=== PATIENT | female | born 1945 | race Caucasian/White ===

== ENCOUNTER → 2018-07-22 13:32 | Outpatient (CLI) | payer MEDICARE, OTHER, SELFPAY | PROVIDERS: Visit Provider Internal Medicine | DX: M85.88 Other specified disorders of bone density and structure, other site (principal); Z78.0 Asymptomatic menopausal state; E11.9 Type 2 diabetes mellitus without complications | CPT/HCPCS: 77080; 77081 ==

== ENCOUNTER 2018-09-28 19:08 | Emergency (ER) | payer MEDICARE, OTHER, SELFPAY ==
[2018-09-28 19:21] VITALS: BP 172/83; PULSE 94; RESP 15; TEMP 37; O2SAT 99; BMI 34.0
--- NOTE | 2018-09-28 19:35 | DI.RAD.S_ITS ---
PROCEDURE: XR HIP W PEL IF DONE LT 2V INDICATIONS: Left hip pain, unable to bear wt. TECHNIQUE: AP pelvis with lateral view(s) of the left hip(s). COMPARISON: None. FINDINGS: Bones: No fractures or dislocations. Pelvic ring appears intact. No suspicious bony lesions. Soft tissues: The visualized bowel gas pattern is normal. Calcification noted adjacent to the lateral margin of the left femur greater trochanter concerning for calcific tendinitis. IMPRESSION: 1. No fracture. No acute osseous lesion. If symptoms and/or clinical suspicion for pathology persists, further assessment with repeat radiographs (7-10 days) or advanced imaging (e.g. CT, MRI or bone scan) may be helpful. 2. Left gluteal calcific tendinitis. Dictated by: Melba Martin MD, PhD on 09/28/2018 at 20:05 Approved by: Melba Martin MD, PhD on 09/28/2018 at 20:07
--- NOTE | 2018-09-28 19:41 | ED.LOWEXIN ---
HPI - Extremity Injury (Lower) <HECTOR Benedict - Last Filed: 09/28/18 21:53> General Chief Complaint: Extremity Injury, Lower Stated Complaint: unable to bear wt Time Seen by Provider: 09/28/18 19:24 Source: patient and family Mode of arrival: wheelchair Limitations: no limitations History of Present Illness HPI Narrative: 73-year-old female with a history of herniated disc and low back pain, as well as hypertension, presents emergency department complaining of left hip pain that started while she was getting out of the shower. She states it started suddenly and was a sharp 9/10 pain that was worse with standing and better with rest. She denies any trauma during this time. During the interview she also reported a twinge of substernal chest pain that comes 2 to 3 times a day and lasts for 1-3 seconds for the past 3 days however, this pain has not occurred today. Patient states this chest pain usually occurs when she is at rest. She also complains of neck pain stating that her neck is ?sore?. Patient states she has been using a new orthopedic bed that she is able to raise the head of, she wonders is this is contributing to her neck pain. She denies any fevers, chills, shortness of breath, nausea, vomiting, abdominal pain, orthopnea, syncope, or confusion. Related Data Previous Rx's Medication Instructions Recorded hydrocodone-acetaminophen [[place]] 1 tab PO BEDTIME PRN #5 tab 09/28/18 Allergies Allergy/AdvReac Type Severity Reaction Status Date / Time lisinopril Allergy Verified 09/28/18 19:21 Penicillins Allergy Verified 09/28/18 19:21 Review of Systems <HECTOR Benedict - Last Filed: 09/28/18 21:53> Review of Systems REVIEW OF SYSTEMS: GENERAL: Denies fever or chills. HENT: No head trauma. EYES: No double vision or vision loss. CARDIOVASCULAR: No chest pain or syncope. RESPIRATORY: No shortness of breath or cough. GASTROINTESTINAL: No nausea, vomiting, diarrhea, or constipation. GENITOURINARY: No flank pain or dysuria. MUSCULOSKELETAL: Complains of left hip pain, see HPI. INTEGUMENTARY: No rash, lesions, or pruritus. NEURO: No numbness, tingling. PSYCH: No behavior or mood changes. PFSH <HECTOR Benedict - Last Filed: 09/28/18 21:53> Medical History Herniated disc (Acute) Social History Smoking Status: Unknown if ever smoked Social History Smoking Status: Unknown if ever smoked Exam <HECTOR Benedict - Last Filed: 09/28/18 21:53> Initial Vital Signs Initial Vital Signs: Vital Signs Temperature 98.6 F 09/28/18 19:21 Pulse Rate 94 H 09/28/18 19:21 Respiratory Rate 15 09/28/18 19:21 Blood Pressure 172/83 H 09/28/18 19:21 Pulse Oximetry 99 09/28/18 19:21 PHYSICAL EXAMINATION: GENERAL: Well groomed, alert, and cooperative. Answers questions promptly and appropriately. Vital signs noted. HENT: Normocephalic, atraumatic. Oropharynx without erythema. EYES: PERRLA. symmetrical, sclera white, no periorbital swelling. CARDIOVASCULAR: S1 and S2 sounds normal. Regular rate and rhythm, no murmurs, clicks, or bruits. 2+ pedal edema noted, patient states this is normal for her. RESPIRATORY: Normal respiratory rate, trachea midline, airway patent. No stridor, nasal flaring or accessory muscle use. Lungs are clear in all pinon. MUSCULOSKELETAL: Significant tenderness to palpation of left hip joint, and sciatica region. No rash, swelling, or erythema in the area, no ecchymosis in the area. Straight leg test produced pain in her back. After administration of Toradol patient was able to ambulate to the bathroom without significant pain, she did states she had some ongoing pain cell.. Patient walks with a limp is due to left hip pain.. Equal tone and mass bilaterally. No spinal tenderness or deformities. EXTREMITIES: CMS intact. No pedal edema. SKIN: Warm, dry, soft, appropriate color for ethnicity. No lesions, rashes, or wounds. NEURO: Alert and Oriented X 3. No sensory deficits. PSYCH: Appropriate affect and mood. <Pramod López MD - Last Filed: 09/29/18 00:48> Initial Vital Signs Initial Vital Signs: Vital Signs Temperature 98.6 F 09/28/18 19:21 Pulse Rate 94 H 09/28/18 19:21 Respiratory Rate 15 09/28/18 19:21 Blood Pressure 172/83 H 09/28/18 19:21 Pulse Oximetry 99 09/28/18 19:21 Scores <HECTOR Benedict - Last Filed: 09/28/18 21:53> HEART Score Heart Score history: Slightly Suspicious Heart Score EKG: Normal Heart Score Age: > or = 65 years old Heart Score risk factors: No known risk factors Heart Score troponin: < or = to normal limit Heart Score Total: 2 Course <HECTOR Benedict - Last Filed: 09/28/18 21:53> Course Narrative: Extensive discussion was had with patient about the importance of follow-up for this condition. Pain medications were given to help her rest, we spoke about the fact that injections of prednisone were most helpful and or prednisone would not be beneficial and it will increase her blood sugars. Patient verbalized understanding. Extensive education was given about narcotic and the risk for addiction and drowsiness. Patient was instructed not to drive with narcotics. Orders Ordered: ED Orders 09/28/18 19:35 XR hip w pel if done LT 2V Stat EKG-12 Lead Stat 09/28/18 19:50 Complete Blood Count AUTO DIFF Stat Comprehensive Metabolic Panel Stat Erythrocyte Sedimentation Rate Stat Troponin & CK Cardiac Panel Stat Discontinued Medications Hydrocodone Bitart/Acetaminophen (Vicodin Prepack) 1 bottle MISC SEEINSTR ONE Stop: 09/28/18 21:30 Hydrocodone Bitart/Acetaminophen ([place] 5/325) 1 tab PO NOW ONE Stop: 09/28/18 21:35 Last Admin: 09/28/18 21:38 Dose: 1 tab Ketorolac Tromethamine (Toradol) 15 mg IV NOW ONE Stop: 09/28/18 19:41 Last Admin: 09/28/18 20:11 Dose: 15 mg Consultations Consultation #1: Patient staffed with Dr. López. Vital Signs - 8 hr 09/28/18 19:21 09/28/18 20:00 09/28/18 21:00 Temperature 98.6 F Pulse Rate 94 H 72 81 Respiratory Rate 15 17 17 Blood Pressure 172/83 H Blood Pressure [Right Arm] 145/82 H 141/79 H Pulse Oximetry 99 98 99 <Pramod López MD - Last Filed: 09/29/18 00:48> Orders Ordered: ED Orders 09/28/18 19:35 XR hip w pel if done LT 2V Stat EKG-12 Lead Stat 09/28/18 19:50 Complete Blood Count AUTO DIFF Stat Comprehensive Metabolic Panel Stat Erythrocyte Sedimentation Rate Stat Troponin & CK Cardiac Panel Stat Discontinued Medications Hydrocodone Bitart/Acetaminophen (Vicodin Prepack) 1 bottle MISC SEEINSTR ONE Stop: 09/28/18 21:30 Hydrocodone Bitart/Acetaminophen ([place] 5/325) 1 tab PO NOW ONE Stop: 09/28/18 21:35 Last Admin: 09/28/18 21:38 Dose: 1 tab Ketorolac Tromethamine (Toradol) 15 mg IV NOW ONE Stop: 09/28/18 19:41 Last Admin: 09/28/18 20:11 Dose: 15 mg Vital Signs - 8 hr 09/28/18 19:21 09/28/18 20:00 09/28/18 21:00 Temperature 98.6 F Pulse Rate 94 H 72 81 Respiratory Rate 15 17 17 Blood Pressure 172/83 H Blood Pressure [Right Arm] 145/82 H 141/79 H Pulse Oximetry 99 98 99 MDM - Extremity Injury (Lower) <HECTOR Benedict - Last Filed: 09/28/18 21:53> Medical Records Attestation: I reviewed the patient's medical records. Lab Data Attestation: I reviewed the patient's lab results. Result diagrams: 09/28/18 19:50 09/28/18 19:50 Lab Results 09/28/18 09/28/18 Range/Units 19:50 19:50 WBC 8.4 (4.5-11.0) X10^3/uL RBC 4.55 (4.0-5.2) X10^6/uL Hgb 13.2 (12.0-16.0) g/dL Hct 39.3 (36-46) % MCV 86.3 (80-100) fL MCH 29.1 (26-34) PG MCHC 33.7 (30-36) % RDW 13.6 (11.6-14.8) % Plt Count 294 (150-400) X10^3/uL Neut % (Auto) 65.3 (50-75) % Lymph % (Auto) 26.2 (25-40) % [place] % (Auto) 6.5 (3-14) % Eos % (Auto) 1.2 L (2-4) % Baso % (Auto) 0.8 (0-2) % Neut # (Auto) 5500 (0606-2850) /uL Lymph # (Auto) 2200 (0589-5815) /uL [place] # (Auto) 500 (0-900) /uL Eos # (Auto) 100 (0-450) /uL Baso # (Auto) 100 (0-100) /uL ESR 31 H (0-20) MM/HR Sodium 132 L (137-145) mmol/L Potassium 3.7 (3.4-5.1) mmol/L Chloride 96 L (98-107) mmol/L Carbon Dioxide 24 (22-32) mmol/L BUN 17 (7-17) mg/dL Creatinine 0.60 (0.52-1.04) mg/dL Estimated GFR > 60.0 (>60) mL/min BUN/Creatinine Ratio 28.3 H (6-22) Glucose 126 H (80-110) mg/dL Calcium 9.8 (8.4-10.2) mg/dL Total Bilirubin 0.6 (0.2-1.3) mg/dL AST 20 (14-36) IU/L ALT 12 (9-52) IU/L Alkaline Phosphatase 81 (38-126) U/L Total Creatine Kinase 51 (30-135) U/L CK-MB (CK-2) TNP CK-MB (CK-2) Rel Index TNP Troponin I < 0.012 (0.01-0.034) ng/mL Total Protein 8.1 (6.3-8.2) g/dL Albumin 4.5 (3.5-5.0) g/dL Globulin 3.6 (1.7-4.1) g/dL Albumin/Globulin Ratio 1.3 (1.0-2.8) ECG Data Interpretation: Normal sinus rhythm, rate 73, QTC 409, OK interval to 0 8, no ectopy, no ST elevation or ST depression, no abnormal T-wave inversion. EKG was also viewed by Dr. López. MDM Narrative Medical decision making narrative: Differential includes calcified gluteal tendinitis (as seen on x-ray, exam consistent with this, lack of other systemic symptoms), herniated disc contributing to sciatica pain (positive straight leg test, history of herniated disc, pain that radiates down her leg), and bursitis (less likely due to lack of redness or inflammation of the area), less likely shingles due to lack of rash or burning pain. I have very little concern for acute coronary syndrome due to normal EKG, negative cardiac enzymes, patient presents with no pain at this time, pain is not clearly cardiac in nature, and no other symptoms are noted such as shortness of breath. Strict return precautions given and follow-up instructions for the orthopedic in for further testing such as a stress test were given to patient. Patient verbalized understanding. <Pramod López MD - Last Filed: 09/29/18 00:48> Lab Data Lab Results 09/28/18 09/28/18 Range/Units 19:50 19:50 WBC 8.4 (4.5-11.0) X10^3/uL RBC 4.55 (4.0-5.2) X10^6/uL Hgb 13.2 (12.0-16.0) g/dL Hct 39.3 (36-46) % MCV 86.3 (80-100) fL MCH 29.1 (26-34) PG MCHC 33.7 (30-36) % RDW 13.6 (11.6-14.8) % Plt Count 294 (150-400) X10^3/uL Neut % (Auto) 65.3 (50-75) % Lymph % (Auto) 26.2 (25-40) % [place] % (Auto) 6.5 (3-14) % Eos % (Auto) 1.2 L (2-4) % Baso % (Auto) 0.8 (0-2) % Neut # (Auto) 5500 (5272-8558) /uL Lymph # (Auto) 2200 (4979-0895) /uL [place] # (Auto) 500 (0-900) /uL Eos # (Auto) 100 (0-450) /uL Baso # (Auto) 100 (0-100) /uL ESR 31 H (0-20) MM/HR Sodium 132 L (137-145) mmol/L Potassium 3.7 (3.4-5.1) mmol/L Chloride 96 L (98-107) mmol/L Carbon Dioxide 24 (22-32) mmol/L BUN 17 (7-17) mg/dL Creatinine 0.60 (0.52-1.04) mg/dL Estimated GFR > 60.0 (>60) mL/min BUN/Creatinine Ratio 28.3 H (6-22) Glucose 126 H (80-110) mg/dL Calcium 9.8 (8.4-10.2) mg/dL Total Bilirubin 0.6 (0.2-1.3) mg/dL AST 20 (14-36) IU/L ALT 12 (9-52) IU/L Alkaline Phosphatase 81 (38-126) U/L Total Creatine Kinase 51 (30-135) U/L CK-MB (CK-2) TNP CK-MB (CK-2) Rel Index TNP Troponin I < 0.012 (0.01-0.034) ng/mL Total Protein 8.1 (6.3-8.2) g/dL Albumin 4.5 (3.5-5.0) g/dL Globulin 3.6 (1.7-4.1) g/dL Albumin/Globulin Ratio 1.3 (1.0-2.8) Discharge Plan Departure Patient Disposition: Home Clinical Impression: Calcifying tendinitis Chest pain Qualifiers: Chest pain type: other chest pain Qualified Code(s): R07.89 - Other chest pain Discharge Date/Time: 09/28/18 21:56 Interventions: ED Discharge Assessment Last Done: 09/28/18 21:52 Instructions: DI for Tendinitis, DI for Chest Pain Activity Restrictions/Additional Instructions: Thank you for entrusting me with your care today. As discussed, your x-ray did not show any fractures however it did show gluteal calcified tendinitis. I prescribed you pain medications and given you a referral to an orthopedic. Do not take Tylenol with this pain medication, you may take Aleve with his pain medication. This pain medication may make you constipated and drowsy, do not drive while you are taking this. Please follow-up as soon as possible to schedule an appointment for treatment and further testing if needed. Additionally, follow up with your primary care provider for further testing such as a stress test if you continue to have this pain in her chest. Return to the emergency department if you develop fevers, a change in chest pain, shortness of breath, syncope, or confusion. Prescriptions: New hydrocodone-acetaminophen [[place]] 5-325 mg tablet 1 tab PO BEDTIME PRN (Reason: pain) Qty: 5 RF: 0 Referrals: Chriss Dunlap MD [Physician] - (Calcified gluteal tendonitis) <Pramod López MD - Last Filed: 09/29/18 00:48> [facility] I was present in the ER at the time this patient's care. I discussed the patient's evaluation, management and disposition with HECTOR Drummond during the patient's care here in the ER. I agree with the assessment and treatment plan.
--- NOTE | 2018-09-28 19:44 | ED_ITS ---
HPI - Extremity Injury (Lower) <HECTOR Benedict - Last Filed: 09/28/18 21:53> General Chief Complaint: Extremity Injury, Lower Stated Complaint: unable to bear wt Time Seen by Provider: 09/28/18 19:24 Source: patient and family Mode of arrival: wheelchair Limitations: no limitations History of Present Illness HPI Narrative: 73-year-old female with a history of herniated disc and low back pain, as well as hypertension, presents emergency department complaining of left hip pain that started while she was getting out of the shower. She states it started suddenly and was a sharp 9/10 pain that was worse with standing and better with rest. She denies any trauma during this time. During the interview she also reported a twinge of substernal chest pain that comes 2 to 3 times a da y and lasts for 1-3 seconds for the past 3 days however, this pain has not occurred today. Patient states this chest pain usually occurs when she is at rest. She also complains of neck pain stating that her neck is ?sore?. Patient states she has been using a new orthopedic bed that she is able to raise the head of, she wonders is this is contributing to her neck pain. She denies any fevers, chills, shortness of breath, nausea, vomiting, abdominal pain, orthopnea, syncope, or confusion. Related Data Previous Rx's Medication Instructions Recorded hydrocodone-acetaminophen [Franklin] 1 tab PO BEDTIME PRN #5 tab 09/28/18 Allergies Allergy/AdvReac Type Severity Reaction Status Date / Time lisinopril Allergy Verified 09/28/18 19:21 Penicillins Allergy Verified 09/28/18 19:21 Review of Systems <HECTOR Benedict - Last Filed: 09/28/18 21:53> Review of Systems REVIEW OF SYSTEMS: GENERAL: Denies fever or chills. HENT: No head trauma. EYES: No double vision or vision loss. CARDIOVASCULAR: No chest pain or syncope. RESPIRATORY: No shortness of breath or cough. GASTROINTESTINAL: No nausea, vomiting, diarrhea, or constipation. GENITOURINARY: No flank pain or dysuria. MUSCULOSKELETAL: Complains of left hip pain, see HPI. INTEGUMENTARY: No rash, lesions, or pruritus. NEURO: No numbness, tingling. PSYCH: No behavior or mood changes. PFSH <HECTOR Benedict - Last Filed: 09/28/18 21:53> Medical History Herniated disc (Acute) Social History Smoking Status: Unknown if ever smoked Social History Smoking Status: Unknown if ever smoked Exam <HECTOR Benedict - Last Filed: 09/28/18 21:53> Initial Vital Signs Initial Vital Signs: Vital Signs Temperature 98.6 F 09/28/18 19:21 Pulse Rate 94 H 09/28/18 19:21 Respiratory Rate 15 09/28/18 19:21 Blood Pressure 172/83 H 09/28/18 19:21 Pulse Oximetry 99 09/28/18 19:21 PHYSICAL EXAMINATION: GENERAL: Well groomed, alert, and cooperative. Answers questions promptly and appropriately. Vital signs noted. HENT: Normocephalic, atraumatic. Oropharynx without erythema. EYES: PERRLA. symmetrical, sclera white, no periorbital swelling. CARDIOVASCULAR: S1 and S2 sounds normal. Regular rate and rhythm, no murmurs, clicks, or bruits. 2+ pedal edema noted, patient states this is normal for her. RESPIRATORY: Normal respiratory rate, trachea midline, airway patent. No stridor, nasal flaring or accessory muscle use. Lungs are clear in all pinon. MUSCULOSKELETAL: Significant tenderness to palpation of left hip joint, and sciatica region. No rash, swelling, or erythema in the area, no ecchymosis in the area. Straight leg test produced pain in her back. After administration of Toradol patient was able to ambulate to the bathroom without significant pain, she did states she had some ongoing pain cell.. Patient walks with a limp is due to left hip pain.. Equal tone and mass bilaterally. No spinal tenderness or deformities. EXTREMITIES: CMS intact. No pedal edema. SKIN: Warm, dry, soft, appropriate color for ethnicity. No lesions, rashes, or wounds. NEURO: Alert and Oriented X 3. No sensory deficits. PSYCH: Appropriate affect and mood. <Pramod López MD - Last Filed: 09/29/18 00:48> Initial Vital Signs Initial Vital Signs: Vital Signs Temperature 98.6 F 09/28/18 19:21 Pulse Rate 94 H 09/28/18 19:21 Respiratory Rate 15 09/28/18 19:21 Blood Pressure 172/83 H 09/28/18 19:21 Pulse Oximetry 99 09/28/18 19:21 Scores <HECTOR Benedict - Last Filed: 09/28/18 21:53> HEART Score Heart Score history: Slightly Suspicious Heart Score EKG: Normal Heart Score Age: > or = 65 years old Heart Score risk factors: No known risk factors Heart Score troponin: < or = to normal limit Heart Score Total: 2 Course <HECTOR Benedict - Last Filed: 09/28/18 21:53> Course Narrative: Extensive discussion was had with patient about the importance of follow-up for this condition. Pain medications were given to help her rest, we spoke about the fact that injections of prednisone were most helpful and or prednisone would not be beneficial and it will increase her blood sugars. Patient verbalized understanding. Extensive education was given about narcotic and the risk for addiction and drowsiness. Patient was instructed not to drive with narcotics. Orders Ordered: ED Orders 09/28/18 19:35 XR hip w pel if done LT 2V Stat EKG-12 Lead Stat 09/28/18 19:50 Complete Blood Count AUTO DIFF Stat Comprehensive Metabolic Panel Stat Erythrocyte Sedimentation Rate Stat Troponin & CK Cardiac Panel Stat Discontinued Medications Hydrocodone Bitart/Acetaminophen (Vicodin Prepack) 1 bottle MISC SEEINSTR ONE Stop: 09/28/18 21:30 Hydrocodone Bitart/Acetaminophen (Franklin 5/325) 1 tab PO NOW ONE Stop: 09/28/18 21:35 Last Admin: 09/28/18 21:38 Dose: 1 tab Ketorolac Tromethamine (Toradol) 15 mg IV NOW ONE Stop: 09/28/18 19:41 Last Admin: 09/28/18 20:11 Dose: 15 mg Consultations Consultation #1: Patient staffed with Dr. López. Vital Signs - 8 hr 09/28/18 19:21 09/28/18 20:00 09/28/18 21:00 Temperature 98.6 F Pulse Rate 94 H 72 81 Respiratory Rate 15 17 17 Blood Pressure 172/83 H Blood Pressure [Right Arm] 145/82 H 141/79 H Pulse Oximetry 99 98 99 <Pramod López MD - Last Filed: 09/29/18 00:48> Orders Ordered: ED Orders 09/28/18 19:35 XR hip w pel if done LT 2V Stat EKG-12 Lead Stat 09/28/18 19:50 Complete Blood Count AUTO DIFF Stat Comprehensive Metabolic Panel Stat Erythrocyte Sedimentation Rate Stat Troponin & CK Cardiac Panel Stat Discontinued Medications Hydrocodone Bitart/Acetaminophen (Vicodin Prepack) 1 bottle MISC SEEINSTR ONE Stop: 09/28/18 21:30 Hydrocodone Bitart/Acetaminophen (Franklin 5/325) 1 tab PO NOW ONE Stop: 09/28/18 21:35 Last Admin: 09/28/18 21:38 Dose: 1 tab Ketorolac Tromethamine (Toradol) 15 mg IV NOW ONE Stop: 09/28/18 19:41 Last Admin: 09/28/18 20:11 Dose: 15 mg Vital Signs - 8 hr 09/28/18 19:21 09/28/18 20:00 09/28/18 21:00 Temperature 98.6 F Pulse Rate 94 H 72 81 Respiratory Rate 15 17 17 Blood Pressure 172/83 H Blood Pressure [Right Arm] 145/82 H 141/79 H Pulse Oximetry 99 98 99 MDM - Extremity Injury (Lower) <HECTOR Benedict - Last Filed: 09/28/18 21:53> Medical Records Attestation: I reviewed the patient's medical records. Lab Data Attestation: I reviewed the patient's lab results. Result diagrams: 09/28/18 19:50 09/28/18 19:50 Lab Results 09/28/18 09/28/18 Range/Units 19:50 19:50 WBC 8.4 (4.5-11.0) X10^3/uL RBC 4.55 (4.0-5.2) X10^6/uL Hgb 13.2 (12.0-16.0) g/dL Hct 39.3 (36-46) % MCV 86.3 (80-100) fL MCH 29.1 (26-34) PG MCHC 33.7 (30-36) % RDW 13.6 (11.6-14.8) % Plt Count 294 (150-400) X10^3/uL Neut % (Auto) 65.3 (50-75) % Lymph % (Auto) 26.2 (25-40) % [place] % (Auto) 6.5 (3-14) % Eos % (Auto) 1.2 L (2-4) % Baso % (Auto) 0.8 (0-2) % Neut # (Auto) 5500 (8880-1488) /uL Lymph # (Auto) 2200 (1526-4557) /uL [place] # (Auto) 500 (0-900) /uL Eos # (Auto) 100 (0-450) /uL Baso # (Auto) 100 (0-100) /uL ESR 31 H (0-20) MM/HR Sodium 132 L (137-145) mmol/L Potassium 3.7 (3.4-5.1) mmol/L Chloride 96 L (98-107) mmol/L Carbon Dioxide 24 (22-32) mmol/L BUN 17 (7-17) mg/dL Creatinine 0.60 (0.52-1.04) mg/dL Estimated GFR > 60.0 (>60) mL/min BUN/Creatinine Ratio 28.3 H (6-22) Glucose 126 H (80-110) mg/dL Calcium 9.8 (8.4-10.2) mg/dL Total Bilirubin 0.6 (0.2-1.3) mg/dL AST 20 (14-36) IU/L ALT 12 (9-52) IU/L Alkaline Phosphatase 81 (38-126) U/L Total Creatine Kinase 51 (30-135) U/L CK-MB (CK-2) TNP CK-MB (CK-2) Rel Index TNP Troponin I < 0.012 (0.01-0.034) ng/mL Total Protein 8.1 (6.3-8.2) g/dL Albumin 4.5 (3.5-5.0) g/dL Globulin 3.6 (1.7-4.1) g/dL Albumin/Globulin Ratio 1.3 (1.0-2.8) ECG Data Interpretation: Normal sinus rhythm, rate 73, QTC 409, IL interval to 0 8, no ectopy, no ST elevation or ST depression, no abnormal T-wave inversion. EKG was also viewed by Dr. López. MDM Narrative Medical decision making narrative: Differential includes calcified gluteal tendinitis (as seen on x-ray, exam consistent with this, lack of other systemic symptoms), herniated disc contributing to sciatica pain (positive straight leg test, history of herniated disc, pain that radiates down her leg), and bursitis (less likely due to lack of redness or inflammation of the area), less likely shingles due to lack of rash or burning pain. I have very little concern for acute coronary syndrome due to normal EKG, negative cardiac enzymes, patient presents with no pain at this time, pain is not clearly cardiac in nature, and no other symptoms are noted such as shortness of breath. Strict return precautions given and follow-up instructions for the orthopedic in for further testing such as a stress test were given to patient. Patient verbalized understanding. <Pramod López MD - Last Filed: 09/29/18 00:48> Lab Data Lab Results 09/28/18 09/28/18 Range/Units 19:50 19:50 WBC 8.4 (4.5-11.0) X10^3/uL RBC 4.55 (4.0-5.2) X10^6/uL Hgb 13.2 (12.0-16.0) g/dL Hct 39.3 (36-46) % MCV 86.3 (80-100) fL MCH 29.1 (26-34) PG MCHC 33.7 (30-36) % RDW 13.6 (11.6-14.8) % Plt Count 294 (150-400) X10^3/uL Neut % (Auto) 65.3 (50-75) % Lymph % (Auto) 26.2 (25-40) % [place] % (Auto) 6.5 (3-14) % Eos % (Auto) 1.2 L (2-4) % Baso % (Auto) 0.8 (0-2) % Neut # (Auto) 5500 (5517-9525) /uL Lymph # (Auto) 2200 (7586-3775) /uL [place] # (Auto) 500 (0-900) /uL Eos # (Auto) 100 (0-450) /uL Baso # (Auto) 100 (0-100) /uL ESR 31 H (0-20) MM/HR Sodium 132 L (137-145) mmol/L Potassium 3.7 (3.4-5.1) mmol/L Chloride 96 L (98-107) mmol/L Carbon Dioxide 24 (22-32) mmol/L BUN 17 (7-17) mg/dL Creatinine 0.60 (0.52-1.04) mg/dL Estimated GFR > 60.0 (>60) mL/min BUN/Creatinine Ratio 28.3 H (6-22) Glucose 126 H (80-110) mg/dL Calcium 9.8 (8.4-10.2) mg/dL Total Bilirubin 0.6 (0.2-1.3) mg/dL AST 20 (14-36) IU/L ALT 12 (9-52) IU/L Alkaline Phosphatase 81 (38-126) U/L Total Creatine Kinase 51 (30-135) U/L CK-MB (CK-2) TNP CK-MB (CK-2) Rel Index TNP Troponin I < 0.012 (0.01-0.034) ng/mL Total Protein 8.1 (6.3-8.2) g/dL Albumin 4.5 (3.5-5.0) g/dL Globulin 3.6 (1.7-4.1) g/dL Albumin/Globulin Ratio 1.3 (1.0-2.8) Discharge Plan Departure Patient Disposition: Home Clinical Impression: Calcifying tendinitis Chest pain Qualifiers: Chest pain type: other chest pain Qualified Code(s): R07.89 - Other chest pain Discharge Date/Time: 09/28/18 21:56 Interventions: ED Discharge Assessment Last Done: 09/28/18 21:52 Instructions: DI for Tendinitis, DI for Chest Pain Activity Restrictions/Additional Instructions: Thank you for entrusting me with your care today. As discussed, your x-ray did not show any fractures however it did show gluteal calcified tendinitis. I prescribed you pain medications and given you a referral to an orthopedic. Do not take Tylenol with this pain medication, you may take Aleve with his pain medication. This pain medication may make you constipated and drowsy, do not drive while you are taking this. Please follow-up as soon as possible to schedule an appointment for treatment and further testing if needed. Additionally, follow up with your primary care provider for further testing such as a stress test if you continue to have this pain in her chest. Return to the emergency department if you develop fevers, a change in chest pain, shortness of breath, syncope, or confusion. Prescriptions: New hydrocodone-acetaminophen [Franklin] 5-325 mg tablet 1 tab PO BEDTIME PRN (Reason: pain) Qty: 5 RF: 0 Referrals: Chriss Dunlap MD [Physician] - (Calcified gluteal tendonitis) <Pramod López MD - Last Filed: 09/29/18 00:48> [facility]: I was present in the ER at the time this patient's care. I discussed the patient's evaluation, management and disposition with HECTOR Drummond during the patient's care here in the ER. I agree with the assessment and treatment plan.
[2018-09-28 20:00] VITALS: BP 145/82; PULSE 72; RESP 17; O2SAT 98
[2018-09-28 20:02] LABS: Add Manual Diff / Slide Review NO; Basophils Absolute Auto 100 /uL (0-100); Basophils Percent Auto 0.8 % (0-2); Eosinophils Absolute Auto 100 /uL (0-450); Eosinophils Percent Auto 1.2 % (2-4); Hematocrit 39.3 % (36-46); Hemoglobin 13.2 g/dL (12.0-16.0); Lymphocytes Absolute Auto 2200 /uL (1100-4500); Lymphocytes Percent Auto 26.2 % (25-40); Mean Corpuscular HGB Conc 33.7 % (30-36); Mean Corpuscular Hemoglobin 29.1 PG (26-34); Mean Corpuscular Volume 86.3 fL (80-100); Monocytes Absolute Auto 500 /uL (0-900); Monocytes Percent Auto 6.5 % (3-14); Neutrophils Absolute Auto 5500 /uL (1500-7000); Neutrophils Percent Auto 65.3 % (50-75); Platelet Count 294 X10^3/uL (150-400); Red Blood Cell Count 4.55 X10^6/uL (4.0-5.2); Red Cell Distribution Width 13.6 % (11.6-14.8); White Blood Cell Count 8.4 X10^3/uL (4.5-11.0)
[2018-09-28] MEDS: KETOROLAC 60 MG/2 ML VIAL 15 MG IV (20:11)
[2018-09-28 20:16] LABS: Erythrocyte Sedimentation Rate 31 MM/HR (0-20)
[2018-09-28 20:17] LABS: Alanine Aminotransferase 12 IU/L (9-52); Albumin 4.5 g/dL (3.5-5.0); Albumin Globulin Ratio 1.3 (1.0-2.8); Alkaline Phosphatase 81 U/L (38-126); Aspartate Aminotransferase 20 IU/L (14-36); BUN Creatinine Ratio 28.3 (6-22); Bilirubin Total 0.6 mg/dL (0.2-1.3); Blood Urea Nitrogen 17 mg/dL (7-17); Calcium 9.8 mg/dL (8.4-10.2); Carbon Dioxide 24 mmol/L (22-32); Chloride 96 mmol/L (98-107); Creatine Kinase 51 U/L (30-135); Estimated Glomerular Filt Rate > 60.0 mL/min (>60); Globulin 3.6 g/dL (1.7-4.1); Glucose 126 mg/dL (80-110); HEMOLYSIS 31 (0-50); Potassium 3.7 mmol/L (3.4-5.1); Sodium 132 mmol/L (137-145); Total Protein 8.1 g/dL (6.3-8.2)
[2018-09-28 21:00] VITALS: BP 141/79; PULSE 81; RESP 17; O2SAT 99
[2018-09-28 21:12] LABS: Troponin I < 0.012 ng/mL (0.01-0.034)
[2018-09-28] MEDS: HYDROCODONE/ACET 5/325 TABLET 1 TAB PO (21:38)
== END 2018-09-28 21:56 | disposition home or self-care (01) ==
PROVIDERS: Emergency Provider Nurse Practitioner
DX: M65.20 Calcific tendinitis, unspecified site (principal); R07.89 Other chest pain
CPT/HCPCS: 36591; 73502; 80053; 82550; 84484; 85025; 85651; 93005; 96374; 99283; 99285; J1885

== ENCOUNTER → 2018-10-05 12:20 | Outpatient (CLI) | payer MEDICARE, OTHER, SELFPAY ==
--- NOTE | 2018-10-05 | DI.MRI.S_ITS ---
PROCEDURE: MR LUMBAR SPINE WO CON INDICATIONS: Sudden onset of low back pain and left leg weakness TECHNIQUE: Noncontrast sagittal T1 spin echo and T2 fast echo, sagittal STIR, axial T1 and T2 fast spin echo through the lumbar spine. In cases with scoliosis, additional coronal T2 fast spin echo may be performed. COMPARISON: None. FINDINGS: Image quality: Excellent. Alignment and Curvature: Grade 1 anterolisthesis of L4 on L5. Bone Marrow: No acute fracture. Multilevel degenerative endplate sclerosis and spurring. Diffuse facet arthropathy. Spinal Cord: Conus medullaris terminates at the L2-L3 level. Visualized cord demonstrates normal signal and size. 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 Facet synovial degenerative cyst seen at the level of L4-L5. Paraspinous Soft Tissues: No paravertebral masses. There is nonspecific, dependent posterior subcutaneous soft tissue edema from level of L3-L4 Large, bilateral presumed renal cysts although technically nonspecific Severe T12-L1 disc degeneration with posterior disc bulge. L1-L2: No canal or lateral recess narrowing. No foraminal stenosis L2-L3: Broad-based posterior disc bulge and bilateral facet arthropathy. Mild central canal narrowing. Partial effacement of both lateral recesses with bilaterally symmetric appearance. Moderate bilateral foraminal narrowing. L3-L4: Broad-based posterior disc bulge and bilateral facet arthropathy. Mild canal stenosis. Mild bilateral foraminal narrowing L4-L5: Broad-based posterior disc bulge and bilateral facet arthropathy. Moderate canal stenosis. Partial effacement of both lateral recesses with bilaterally symmetric appearance. Severe left and moderate to severe right foraminal narrowing with nerve root compression L5-S1: The broad-based posterior disc bulge bilateral facet arthropathy. Mild central canal narrowing. Lateral recesses appear grossly patent. Moderate left and severe foraminal narrowing with nerve root compression IMPRESSION: Grade 1 anterolisthesis of L4 and L5. Diffuse lower lumbar spondylosis and facet arthropathy, with moderate L4-L5 canal narrowing. Multilevel bilateral foraminal stenoses as detailed above, most pronounced at L2-L3, L4-L5 and L5-S1. Dictated by: Vincenzo Mejia M.D. on 10/05/2018 at 13:23 Approved by: Vincenzo Mejia M.D. on 10/05/2018 at 14:21
== END ==
PROVIDERS: PCP Internal Medicine; Visit Provider Physician Assistant Surgical
DX: M54.5 Low back pain (principal); M43.16 Spondylolisthesis, lumbar region; M47.816 Spondylosis without myelopathy or radiculopathy, lumbar region; M47.817 Spondylosis without myelopathy or radiculopathy, lumbosacral region; M48.061 Spinal stenosis, lumbar region without neurogenic claudication; M48.07 Spinal stenosis, lumbosacral region
CPT/HCPCS: 72148

== ENCOUNTER → 2018-12-09 11:44 | Outpatient (CLI) | payer MEDICARE, OTHER, SELFPAY ==
--- NOTE | 2018-12-09 | DI.MG.S_ITS ---
BILATERAL DIGITAL SCREENING MAMMOGRAM 3D/2D WITH CAD: 12/09/2018 CLINICAL: Routine screening. Comparison is made to exams dated: 10/14/2017 mammogram, 08/17/2016 mammogram, and 07/16/2015 mammogram - [facility]. There are scattered fibroglandular elements in both breasts. Current study was also evaluated with a Computer Aided Detection (CAD) system. There is an oval low density mass with an obscured margin in the right breast superior lateral quadrant anterior depth. This appears more prominent on R MLO view, but may be stable on R CC view. There are bilateral circular molemarkers. No other significant masses, calcifications, or other findings are seen in either breast. IMPRESSION: INCOMPLETE: NEEDS ADDITIONAL IMAGING EVALUATION The oval low density mass in the right breast is indeterminate. Additional views with possible ultrasound are recommended. This exam was interpreted at Station ID: [id number]. NOTE: For mammograms, a report in lay terms will be sent to the patient. Approximately 15% of breast malignancies will not be visualized mammographically. In the management of a palpable breast mass, a negative mammogram must not discourage biopsy of a clinically suspicious lesion. Electronically Signed By: Carlos Palma M.D. ecl/:12/09/2018 18:37:17 letter sent: Additional Imaging Needed ACR BI-RADS Category 0: Incomplete [id number]
== END ==
PROVIDERS: PCP Internal Medicine; Visit Provider Internal Medicine
DX: Z12.31 Encounter for screening mammogram for malignant neoplasm of breast (principal)
CPT/HCPCS: 77063; 77067

== ENCOUNTER → 2018-12-30 09:44 | Outpatient (CLI) | payer MEDICARE, OTHER, SELFPAY ==
--- NOTE | 2018-12-30 | DI.MG.S_ITS ---
UNILATERAL RIGHT DIGITAL DIAGNOSTIC MAMMOGRAM 3D/2D WITH ADDITIONAL VIEWS: 12/30/2018 CLINICAL: Additional evaluation requested from prior study. Comparison is made to exams dated: 12/09/2018 mammogram - [facility], 10/14/2017 mammogram, and 08/17/2016 mammogram - [facility]. There are scattered fibroglandular elements in right breast. Previously identified oval low density mass with an obscured margin in the right breast superior lateral quadrant anterior depth on comparison screening mammograms of persists with additional views. IMPRESSION: INCOMPLETE: NEEDS ADDITIONAL IMAGING EVALUATION Previously identified oval low density mass with an obscured margin in the right breast superior lateral quadrant anterior depth on comparison screening mammograms of persists with additional views. A targeted ultrasound is recommended for further evaluation, and will be performed immediately following this exam. This exam was interpreted at Station ID: [id number]. NOTE: For mammograms, a report in lay terms will be sent to the patient. Approximately 15% of breast malignancies will not be visualized mammographically. In the management of a palpable breast mass, a negative mammogram must not discourage biopsy of a clinically suspicious lesion. Electronically Signed By: Carlos Palma M.D. ecl/:12/30/2018 10:22:12 ACR BI-RADS Category 0: Incomplete [id number]
--- NOTE | 2018-12-30 | DI.US.S_ITS ---
LIMITED ULTRASOUND OF RIGHT BREAST: 12/30/2018 CLINICAL: Patient returns today to evaluate a mass in the right breast. Comparison is made to exams dated: 12/30/2018 mammogram, 12/09/2018 mammogram - [facility], 10/14/2017 mammogram, 08/17/2016 mammogram, and 07/16/2015 mammogram - [facility]. Color flow and real-time ultrasound of the right breast 10-12 o'clock region were performed. Quinones scale images of the real-time examination were reviewed. There is a 0.9 x 0.8 x 0.5 cm oval circumscribed hypoechoic mass with mild posterior acoustic enhancement, and no vascularity on Doppler ultrasound located in the right breast at 11 o'clock 2 cm from the nipple. This appears to correlate with the finding seen on mammography. IMPRESSION: SUSPICIOUS OF MALIGNANCY 0.9 x 0.8 x 0.5 cm oval circumscribed mass in the right breast at 11 o'clock 2 cm from the nipple is most consistent with a fibroadenoma and is at low suspicion for malignancy, and appears to correlate with the finding seen on mammography. However, given the increased prominence on mammography, an ultrasound guided biopsy is recommended to exclude malignancy. These results and recommendations were discussed with the patient at the time of the exam by the [facility] Radiologist Dr. Vincenzo Mejia in person. This exam was interpreted at Station ID: [id number]. Electronically Signed By: Carlos Palma M.D. ecl/:12/30/2018 11:39:14 letter sent: Biopsy Required Ultrasound BI-RADS: 4a Low suspicion for malignancy
== END ==
PROVIDERS: PCP Internal Medicine; Visit Provider Internal Medicine
DX: R92.8 Other abnormal and inconclusive findings on diagnostic imaging of breast (principal); N63.11 Unspecified lump in the right breast, upper outer quadrant
CPT/HCPCS: 76642; 77065; G0279

== ENCOUNTER → 2019-01-16 10:42 | Outpatient (CLI) | payer MEDICARE, OTHER, SELFPAY ==
[2019-01-16 12:08] LABS: Hemoglobin A1C% w Est Avg Glu 6.4 % (4.0-6.0)
[2019-01-16 13:14] LABS: Alanine Aminotransferase 18 IU/L (<35); Albumin 4.6 g/dL (3.5-5.0); Albumin Globulin Ratio 1.6 (1.0-2.8); Alkaline Phosphatase 82 U/L (38-126); Aspartate Aminotransferase 19 IU/L (14-36); BUN Creatinine Ratio 18.3 (6-22); Bilirubin Total 0.6 mg/dL (0.2-1.3); Blood Urea Nitrogen 11 mg/dL (7-17); Carbon Dioxide 30 mmol/L (22-32); Chloride 96 mmol/L (98-107); Cholesterol 166 mg/dL (140-199); Estimated Glomerular Filt Rate > 60.0 mL/min (>60); Globulin 2.8 g/dL (1.7-4.1); Glucose 131 mg/dL (80-110); HDL Cholesterol 54 mg/dL (40-60); HEMOLYSIS < 15 (0-50); LDL Cholesterol Calculated 83 mg/dL (<100); Potassium 4.4 mmol/L (3.4-5.1); Sodium 137 mmol/L (137-145); Total Protein 7.4 g/dL (6.3-8.2); Triglycerides 145 mg/dL (35-150)
[2019-01-16 17:01] LABS: Creatinine Urine Random 11.6 mg/dL; Microalbumi Creatinin Ratio Ur < 51.7 ug/mg CR (<30); Microalbumin Urine Random < 0.6 mg/dL (0-1.6)
== END ==
PROVIDERS: PCP Internal Medicine; Visit Provider Internal Medicine
DX: E78.5 Hyperlipidemia, unspecified (principal); E11.9 Type 2 diabetes mellitus without complications
CPT/HCPCS: 36415; 80053; 80061; 82043; 82570; 83036

== ENCOUNTER → 2019-01-18 08:59 | Outpatient (CLI) | payer MEDICARE, OTHER, SELFPAY ==
--- NOTE | 2019-01-18 | DI.MG.S_ITS ---
UNILATERAL RIGHT DIGITAL DIAGNOSTIC MAMMOGRAM POST-NEEDLE BIOPSY: 01/18/2019 CLINICAL: Abnormal right Mammogram. Comparison is made to exams dated: 12/30/2018 ultrasound, 12/30/2018 mammogram, 12/09/2018 mammogram, and 01/18/2019 ultrasound biopsy - [facility]. There are scattered fibroglandular elements in right breast. There is a new Vision marker clip in the appropriate position in the superior right breast near 11-12 o'clock position anterior depth. This marker clip placement is at the biopsy site. The marker clip appears to be at the posterior medial aspect of the mass identified on comparison diagnostic mammogram of 12/30/18, although the mass is not well seen on this exam due to post biopsy changes. IMPRESSION: POST PROCEDURE MAMMOGRAM FOR MARKER PLACEMENT There is a new Vision marker clip in the appropriate position in the superior right breast near 11-12 o'clock position anterior depth. This exam was interpreted at Station ID: [id number]. NOTE: For mammograms, a report in lay terms will be sent to the patient. Approximately 15% of breast malignancies will not be visualized mammographically. In the management of a palpable breast mass, a negative mammogram must not discourage biopsy of a clinically suspicious lesion. Electronically Signed By: Carlos Palma M.D. ecl/:01/18/2019 11:39:01 ACR BI-RADS Category Post-procedure mammogram for marker placement
--- NOTE | 2019-01-18 | DI.US.S_ITS ---
ULTRASOUND GUIDED BIOPSY RIGHT BREAST USING VACUUM DEVICE WITH MARKING DEVICE INSERTED AND POST DIGITAL MAMMOGRAPHIC IMAGIN01/18/2019 CLINICAL: Right breast mass. PATIENT CONSENT: Risks (minor bleeding, infection, vasovagal reaction and repeat procedure), benefits and alternatives were explained to the patient and written informed consent was obtained. Correlation is made to exams dated: 01/18/2019 mammogram, 12/30/2018 ultrasound, 12/30/2018 mammogram, 12/09/2018 mammogram - [facility], 10/14/2017 mammogram, and 08/17/2016 mammogram - [facility]. An ultrasound guided biopsy using real-time ultrasound was performed for the concerning mass located in the right breast at 11 o'clock. This was described on the previous ultrasound report. The skin was prepped in the usual manner. 5 mL of 1% lidocaine and 5 mL of 1% lidocaine with epinephrine was used for local anesthesia. A skin anjali was made in the breast. The abnormality was approached from the lateral aspect. A 13 gauge biopsy needle was placed adjacent to the abnormality under ultrasound guidance. Once the needle was documented to be in the correct location, seven specimens were obtained using the Mammotome biopsy system. A Vision clip was inserted into the biopsy cavity. A skin adhesive was applied to the access site. Post procedure ultrasound demonstrates a small hematoma at the biopsy site. There is no active bleeding at the skin surface. Post procedure digital mammographic imaging demonstrates the location device at the targeted area. The specimens were sent to the laboratory for pathological analysis. Postprocedural instructions were discussed with the patient by Dr. Palma and the radiology technologists. IMPRESSION: ULTRASOUND GUIDED BIOPSY BENIGN Ultrasound guided biopsy of the mass in the right breast at 11 o'clock was successful. A small hematoma was identified at the biopsy site. 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 Pathology results are concordant with imaging findings. Return to annual mammogram screening schedule is recommended. This exam was interpreted at Station ID: [id number]. Carlos Gamino M.D. ecl,aty/:01/23/2019 18:04:05
--- NOTE | 2019-01-18 | PATH_ITS ---
[facility] Accession Number: [id number] . 01 Material submitted: . breast - RIGHT BREAST 11:00 . 01 Clinical history: . OTHER ABNORMAL AND INCONCIUSIVE FINDINGS ON DIAGNOSIS 2CM FN . 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 Focal duct ectasia is present. Rare calcifications associated with benign duct also present. Negative for in situ and invasive carcinoma. [facility] 01/19/2019 1755 Local . 01 Comment: Multiple deeper levels have been examined. . Radiologic correlation is recommended to ensure that the lesion has been adequately sampled. In the submitted biopsies, the findings are consistent with sampling of fibroadenoma-without atypia. . As part of ongoing quality assurance coordinator, this case was also reviewed by Dr. Julia Traylor, who agrees with the interpretation. . 01 Electronically signed: . Carmen Orozco MD, Pathologist NPI- [id number] . 01 Gross description: . Received in formalin, labeled right breast 11 o'clock 2 cm FN. Sample is received in a plastic filter, sample loose in container and consists of multiple fragments of lomeli-yellow tissue and blood which measure 0.2-0.3 cm in diameter and range in length from 1.5 cm to 0.5 cm. Submitted entirely in two cassettes. Collection time: 01/18/19 at 10:17. Total fixation time: 17 hours. ([id number]) /FRR 01/19/2019 0219 Local . 01 Pathologist provided ICD-10: D24.1 . 01 CPT . 473461 Performed at: 01 [facility] [address] [place] [address] [address] [facility], [place], [place] [id number] MD Chriss Desai MD Phone: [phone]
== END ==
PROVIDERS: PCP Internal Medicine; Visit Provider Internal Medicine
DX: D24.1 Benign neoplasm of right breast (principal); N60.41 Mammary duct ectasia of right breast; N64.89 Other specified disorders of breast
CPT/HCPCS: 19083; 77065

== ENCOUNTER → 2019-04-27 11:37 | Outpatient (CLI) | payer MEDICARE, OTHER, SELFPAY | PROVIDERS: PCP Internal Medicine; Referring Provider Physician Assistant; Visit Provider Physician Assistant | DX: M51.36 Other intervertebral disc degeneration, lumbar region (principal); M54.31 Sciatica, right side; M54.32 Sciatica, left side; M43.16 Spondylolisthesis, lumbar region | CPT/HCPCS: 95886; 95909 ==

== ENCOUNTER 2019-05-03 10:50 | Emergency (ER) | payer MEDICARE, OTHER, SELFPAY ==
[2019-05-03 10:54] VITALS: PULSE 78; RESP 15; TEMP 37; O2SAT 100
--- NOTE | 2019-05-03 11:32 | DI.RAD.S_ITS ---
PROCEDURE: XR CHEST 1V INDICATIONS: Dizziness, cardiac r/o TECHNIQUE: One view of the chest was acquired. COMPARISON: None. FINDINGS: Surgical changes and devices: None. Lungs and pleura: Lungs are clear. No pleural effusions or pneumothorax. Mediastinum: Mediastinal contours appear normal. Heart size is normal. Bones and chest wall: No suspicious bony lesions. Overlying soft tissues appear unremarkable. IMPRESSION: Normal for age, source of current dizziness symptoms is not seen. Dictated by: Bipin Archuleta M.D. on 05/03/2019 at 11:53 Approved by: Bipin Archuleta M.D. on 05/03/2019 at 11:54
--- NOTE | 2019-05-03 11:35 | ED_ITS ---
HPI - Dizziness <Lyndsey DrummondHECTOR - Last Filed: 05/03/19 20:30> General Chief Complaint: Dizziness Stated Complaint: Intermittent vertigo for 10 days Time Seen by Provider: 05/03/19 11:10 Source: patient Mode of arrival: Ambulatory History of Present Illness HPI Narrative: 74yo female presents to the emergency department complaining of ?the room spinning ?vertigo, and dizziness. She states this started about 10 days ago. She increased her gabapentin that she is taking for nerve symptoms to an extra 100 mg at night (she usually takes 400 mg of gabapentin t.i.d.), about day 3 into the increase she noticed some feelings of vertigo which she describes as the room was spinning, every time I set up things got worse ?. Patient states a week ago on Wednesday it became increasingly worse and patient states I was unable to get out of bed because every time I tried a throughout, this lasted about an hour her symptoms continue to resolve throughout the rest the week but she still felt ?that something was in quite?. Today she noticed an increase in vertigo and is worried that other things may be contributing. She did feel nauseated this morning and took a Zofran which has helped. She denies any headaches, nasal congestion, ear pain, chest pain, shortness of breath, fevers, vomiting at this time, abdominal pain, diarrhea, or other concerns. She denies any major medical issues such as cardiac issues but states that she does have a pinched nerve that caused leg weakness last year which has been getting better. Related Data Home Medications Medication Instructions Recorded Confirmed acetaminophen-codeine 1 tab PO QID PRN 05/03/19 amlodipine 5 mg PO DAILY 05/03/19 05/03/19 atorvastatin 20 mg PO DAILY 05/03/19 05/03/19 gabapentin 300 mg PO TID 05/03/19 05/03/19 hydrochlorothiazide 25 mg PO DAILY 05/03/19 05/03/19 losartan 25 mg PO DAILY 05/03/19 05/03/19 metformin 500 mg PO BID 05/03/19 05/03/19 timolol maleate 05/03/19 Previous Rx's Medication Instructions Recorded meclizine 25 mg PO TID PRN #20 tab 05/03/19 ondansetron 4 mg PO Q8H PRN #14 tab 05/03/19 Allergies Allergy/AdvReac Type Severity Reaction Status Date / Time lisinopril Allergy Verified 09/28/18 19:21 Penicillins Allergy Verified 09/28/18 19:21 Review of Systems <HECTOR Benedict - Last Filed: 05/03/19 20:30> Review of Systems Narrative: REVIEW OF SYSTEMS: GENERAL: Complains of dizziness, see HPI. HENT: No head trauma, hearing loss or sore throat. EYES: No loss of vision, double vision, eye pain, or irritation. CARDIOVASCULAR: No chest pain or syncope. RESPIRATORY: No shortness of breath or cough. GASTROINTESTINAL: No nausea, vomiting, diarrhea, or constipation. GENITOURINARY: No flank pain or dysuria. MUSCULOSKELETAL: No pain, weakness, or deformities. INTEGUMENTARY: No rash, lesions, or pruritus. NEURO: No numbness, tingling, memory loss, or confusion. PSYCH: No behavior or mood changes. Patient History <HECTOR Benedict - Last Filed: 05/03/19 20:30> Medical History Herniated disc (Acute) Social History Smoking Status: Unknown if ever smoked Smoking Status: Unknown if ever smoked alcohol intake frequency: holidays/special occasions only Substance Use Type: does not use Exam <HECTOR Benedict - Last Filed: 05/03/19 20:30> Initial Vital Signs Initial Vital Signs: Vital Signs Temperature 98.6 F 05/03/19 10:54 Pulse Rate 78 05/03/19 10:54 Respiratory Rate 15 05/03/19 10:54 Pulse Oximetry 100 05/03/19 10:54 PHYSICAL EXAMINATION: GENERAL: Well groomed, alert, and cooperative. Answers questions promptly and appropriately. Vital signs noted. HENT: Normocephalic, atraumatic. Ear canals patent. Oral mucosa is pink and moist. EYES: PERRLA, no nystagmus, Conjunctiva pink, sclera white, no periorbital swelling. CHEST: Normal to inspection and without deformities. CARDIOVASCULAR: S1 and S2 sounds normal. Regular rate and rhythm, no murmurs, clicks, or bruits. No pedal edema. RESPIRATORY: Normal respiratory rate, trachea midline, airway patent. No strido r, nasal flaring or accessory muscle use. Lungs are clear in all pinon without wheeze, rhonchi, or crackles. GASTROINTESTINAL: Bowel sounds normoactive. Abdomen is soft and non-tender. No organomegaly. MUSCULOSKELETAL: Normal gait and coordination. Equal strength to upper and lower extremities. Equal tone and mass bilaterally. EXTREMITIES: CMS intact. Moves all extremities. SKIN: Warm, dry, soft, appropriate color for ethnicity. No lesions, rashes, or wounds. NEURO: Alert and Oriented X 3. CN III-XIII. Good coordination. No ataxia, or sensory deficits, or cognitive issues. + Tidioute-Hallpike maneuver. Equal light touch sensation to lower extremities. PSYCH: Appropriate affect and mood. <Javier Matta DO - Last Filed: 05/03/19 22:25> Initial Vital Signs Initial Vital Signs: Vital Signs Temperature 98.6 F 05/03/19 10:54 Pulse Rate 78 05/03/19 10:54 Respiratory Rate 15 05/03/19 10:54 Pulse Oximetry 100 05/03/19 10:54 Course <HECTOR Benedict - Last Filed: 05/03/19 20:30> Course Course Narrative: Patient reported significantly reduce symptoms after administration of fluids and meclizine. She was able to ambulate without any feelings of vertigo or dizziness. Orders Ordered: Discontinued Medications Acetaminophen (Tylenol) 650 mg PO NOW ONE Stop: 05/03/19 13:01 Sodium Chloride (Normal Saline 0.9%) 1,000 mls @ 150 mls/hr IV CONT BERT Last Infusion: 05/03/19 14:30 Dose: 0 mls/hr Documented by: Admin: 05/03/19 12:45 Dose: 150 mls/hr Documented by: TEA Meclizine HCl (Antivert) 25 mg PO NOW ONE Stop: 05/03/19 11:33 Last Admin: 05/03/19 12:46 Dose: 25 mg Documented by: TEA Consultations Consultation #1: Patient staffed with Dr. Meléndez Vital Signs Vital signs: Vital Signs - 8 hr 05/03/19 14:30 Pulse Rate 66 Respiratory Rate 12 Blood Pressure [Right Arm] 138/77 Pulse Oximetry 100 <Javier Matta DO - Last Filed: 05/03/19 22:25> Orders Ordered: Discontinued Medications Acetaminophen (Tylenol) 650 mg PO NOW ONE Stop: 05/03/19 13:01 Sodium Chloride (Normal Saline 0.9%) 1,000 mls @ 150 mls/hr IV CONT BERT Last Infusion: 05/03/19 14:30 Dose: 0 mls/hr Documented by: Admin: 05/03/19 12:45 Dose: 150 mls/hr Documented by: TEA Meclizine HCl (Antivert) 25 mg PO NOW ONE Stop: 05/03/19 11:33 Last Admin: 05/03/19 12:46 Dose: 25 mg Documented by: TEA Vital Signs Vital signs: Vital Signs - 8 hr 05/03/19 14:30 Pulse Rate 66 Respiratory Rate 12 Blood Pressure [Right Arm] 138/77 Pulse Oximetry 100 MDM - Dizziness <HECTOR Benedict - Last Filed: 05/03/19 20:30> Medical Records Attestation: I reviewed the patient's medical records. Lab Data Attestation: I reviewed the patient's lab results. Result diagrams: 05/03/19 12:05 05/03/19 12:05 Labs: Lab Results 05/03/19 05/03/19 05/03/19 Range/Units 12:05 12:05 12:05 WBC 8.0 (4.5-11.0) X10^3/uL RBC 4.30 (4.0-5.2) X10^6/uL Hgb 12.7 (12.0-16.0) g/dL Hct 37.4 (36-46) % MCV 87.0 (80-100) fL MCH 29.6 (26-34) PG MCHC 34.0 (30-36) % RDW 13.9 (11.6-14.8) % Plt Count 320 (150-400) X10^3/uL Neut % (Auto) 71.6 (50-75) % Lymph % (Auto) 22.1 L (25-40) % Letcher % (Auto) 5.2 (3-14) % Eos % (Auto) 0.4 L (2-4) % Baso % (Auto) 0.7 (0-2) % Neut # (Auto) 5700 (4261-4586) /uL Lymph # (Auto) 1800 (0250-6448) /uL Letcher # (Auto) 400 (0-900) /uL Eos # (Auto) 0 (0-450) /uL Baso # (Auto) 100 (0-100) /uL Sodium 132 L (137-145) mmol/L Potassium 4.2 (3.4-5.1) mmol/L Chloride 93 L (98-107) mmol/L Carbon Dioxide 25 (22-32) mmol/L BUN 13 (7-17) mg/dL Creatinine 0.60 (0.52-1.04) mg/dL Estimated GFR > 60.0 (>60) mL/min BUN/Creatinine Ratio 21.7 (6-22) Glucose 129 H (80-110) mg/dL Calcium 9.9 (8.4-10.2) mg/dL Total Bilirubin 0.5 (0.2-1.3) mg/dL AST 22 (14-36) IU/L ALT 20 (<35) IU/L Alkaline Phosphatase 68 (38-126) U/L Troponin I < 0.012 (0.01-0.034) ng/mL Total Protein 7.6 (6.3-8.2) g/dL Albumin 4.4 (3.5-5.0) g/dL Globulin 3.2 (1.7-4.1) g/dL Albumin/Globulin Ratio 1.4 (1.0-2.8) Imaging Data Chest x-ray: Radiologist's Impression: [address] [address] XRay Report Signed Patient: Leona Herndon [facility]#: [id number] : 4Acct:[id number] Age/Sex: 74 / FDate of Service: 05/03/19 Loc: ED Accession Number: [id number] Procedure: XR chest 1V Ordering Provider: Lyndsey Drummond PROCEDURE: XR CHEST 1V INDICATIONS: Dizziness, cardiac r/o TECHNIQUE: One view of the chest was acquired. COMPARISON: None. FINDINGS: Surgical changes and devices: None. Lungs and pleura: Lungs are clear. No pleural effusions or pneumothorax. Mediastinum: Mediastinal contours appear normal. Heart size is normal. Bones and chest wall: No suspicious bony lesions. Overlying soft tissues appear unremarkable. IMPRESSION: Normal for age, source of current dizziness symptoms is not seen. Dictated by: Bipin Archuleta M.D. on 05/03/2019 at 11:53 Approved by: Bipin Archuleta M.D. on 05/03/2019 at 11:54 ECG Data Interpretation: Rate 63, NV interval 200, QTC 425. Normal sinus rhythm. No ST elevation or ST depression. No T-wave abnormality. EKG was also viewed by Dr. Meléndez. [facility] Narrative Medical decision making narrative: 74-year-old female presenting for 10 days of vertigo that has slowly resolved and increased in symptoms slightly today. Patient's symptoms improved throughout the emergency department stay after administration of fluids and meclizine. Patient was able to ambulate without any symptoms. Labs were non-remarkable other than mild hyponatremia which was noted in her chart previously in August,. EKG was non-remarkable, troponin negative, and x-ray without any abnormal findings. Due to prolonged duration of symptoms that have been improving, this is less likely CVA. NIH score was 0. I suspect this is most likely benign positional vertigo as patient at improved symptoms after administration medication, symptoms have been improving spontaneo usly on her own, and she had a positive Tidioute-Hallpike maneuver. Less likely cardiac in nature due to negative troponin (symptoms have been ongoing for 10 days and I would expect to see a change in EKG or elevated troponin). Less likely orthostatic hypotension as patient denied any increased symptoms upon standing but rather reported increased symptoms upon lying. Patient was encouraged to follow up with her primary care provider in 1-2 weeks for further evaluation. She was given strict ED return precautions. She agreed to plan of care verbalized understanding. <Javier Matta, DO - Last Filed: 05/03/19 22:25> Lab Data Labs: Lab Results 05/03/19 05/03/19 05/03/19 Range/Units 12:05 12:05 12:05 WBC 8.0 (4.5-11.0) X10^3/uL RBC 4.30 (4.0-5.2) X10^6/uL Hgb 12.7 (12.0-16.0) g/dL Hct 37.4 (36-46) % MCV 87.0 (80-100) fL MCH 29.6 (26-34) PG MCHC 34.0 (30-36) % RDW 13.9 (11.6-14.8) % Plt Count 320 (150-400) X10^3/uL Neut % (Auto) 71.6 (50-75) % Lymph % (Auto) 22.1 L (25-40) % Letcher % (Auto) 5.2 (3-14) % Eos % (Auto) 0.4 L (2-4) % Baso % (Auto) 0.7 (0-2) % Neut # (Auto) 5700 (6627-1402) /uL Lymph # (Auto) 1800 (4617-7309) /uL Letcher # (Auto) 400 (0-900) /uL Eos # (Auto) 0 (0-450) /uL Baso # (Auto) 100 (0-100) /uL Sodium 132 L (137-145) mmol/L Potassium 4.2 (3.4-5.1) mmol/L Chloride 93 L (98-107) mmol/L Carbon Dioxide 25 (22-32) mmol/L BUN 13 (7-17) mg/dL Creatinine 0.60 (0.52-1.04) mg/dL Estimated GFR > 60.0 (>60) mL/min BUN/Creatinine Ratio 21.7 (6-22) Glucose 129 H (80-110) mg/dL Calcium 9.9 (8.4-10.2) mg/dL Total Bilirubin 0.5 (0.2-1.3) mg/dL AST 22 (14-36) IU/L ALT 20 (<35) IU/L Alkaline Phosphatase 68 (38-126) U/L Troponin I < 0.012 (0.01-0.034) ng/mL Total Protein 7.6 (6.3-8.2) g/dL Albumin 4.4 (3.5-5.0) g/dL Globulin 3.2 (1.7-4.1) g/dL Albumin/Globulin Ratio 1.4 (1.0-2.8) Discharge Plan Departure Patient Disposition: Home Clinical Impression: Benign paroxysmal positional vertigo Qualifiers: Laterality: bilateral Qualified Code(s): H81.13 - Benign paroxysmal vertigo, bilateral Discharge Date/Time: 05/03/19 14:30 Instructions: DI for Vertigo Activity Restrictions/Additional Instructions: Thank you for entrusting me with your care today. As discussed, your EKG, x-ray, and lab work were non-remarkable other than coincidentally your sodium was a little low at 132. I suggest adding a small amount of salt to 1 meal every other day. Follow up with your primary care provider about this lab value. Your dizziness symptoms are most likely caused by vertigo which usually originates in your inner ear. Please follow up with your primary care provider in 1-2 weeks for further evaluation. I prescribed you an anti-vertigo and an anti-nausea medication, please use these as needed, these prescriptions were sent to [facility] in [place]. Return to the emergency department if he develops any new or wo rsening symptoms such as chest pain, worsening vertigo, uncontrollable vomiting, shortness of breath, vision changes, severe headache, limb weakness, or any other concerns. Prescriptions: New ondansetron 4 mg tablet,disintegrating 4 mg PO Q8H PRN (Reason: nausea and vomiting) Qty: 14 RF: 0 meclizine 25 mg tablet 25 mg PO TID PRN (Reason: dizziness) Qty: 20 RF: 0 No Action atorvastatin 40 mg tablet 20 mg PO DAILY RF: 0 metformin 500 mg tablet 500 mg PO BID RF: 0 acetaminophen-codeine 300-30 mg tablet 1 tab PO QID PRN (Reason: pain) RF: 0 amlodipine 5 mg tablet 5 mg PO DAILY RF: 0 losartan 25 mg tablet 25 mg PO DAILY RF: 0 gabapentin 300 mg capsule 300 mg PO TID RF: 0 hydrochlorothiazide 25 mg tablet 25 mg PO DAILY RF: 0 timolol maleate 0.5 % drops RF: 0 Referrals: Gypsy Emery MD [Primary Care Provider] - <Javier Matta DO - Last Filed: 05/03/19 22:25> Sign Out Provider Sign Out Attestation: I was immediately available in the department for consultation. This documentation has been reviewed and I agree with assessment and plan. Supervised by Javier Matta DO
[2019-05-03 12:15] LABS: Add Manual Diff / Slide Review NO; Basophils Absolute Auto 100 /uL (0-100); Basophils Percent Auto 0.7 % (0-2); Eosinophils Absolute Auto 0 /uL (0-450); Eosinophils Percent Auto 0.4 % (2-4); Hematocrit 37.4 % (36-46); Hemoglobin 12.7 g/dL (12.0-16.0); Lymphocytes Absolute Auto 1800 /uL (1100-4500); Lymphocytes Percent Auto 22.1 % (25-40); Mean Corpuscular Hemoglobin 29.6 PG (26-34); Monocytes Absolute Auto 400 /uL (0-900); Monocytes Percent Auto 5.2 % (3-14); Neutrophils Absolute Auto 5700 /uL (1500-7000); Neutrophils Percent Auto 71.6 % (50-75); Platelet Count 320 X10^3/uL (150-400); Red Cell Distribution Width 13.9 % (11.6-14.8)
[2019-05-03 12:25] LABS: Alanine Aminotransferase 20 IU/L (<35); Albumin 4.4 g/dL (3.5-5.0); Albumin Globulin Ratio 1.4 (1.0-2.8); Alkaline Phosphatase 68 U/L (38-126); Aspartate Aminotransferase 22 IU/L (14-36); BUN Creatinine Ratio 21.7 (6-22); Bilirubin Total 0.5 mg/dL (0.2-1.3); Blood Urea Nitrogen 13 mg/dL (7-17); Calcium 9.9 mg/dL (8.4-10.2); Carbon Dioxide 25 mmol/L (22-32); Chloride 93 mmol/L (98-107); Estimated Glomerular Filt Rate > 60.0 mL/min (>60); Globulin 3.2 g/dL (1.7-4.1); Glucose 129 mg/dL (80-110); HEMOLYSIS < 15 (0-50); Potassium 4.2 mmol/L (3.4-5.1); Sodium 132 mmol/L (137-145); Total Protein 7.6 g/dL (6.3-8.2)
[2019-05-03 12:30] VITALS: BP 126/61; PULSE 61; RESP 12; O2SAT 98
[2019-05-03 12:37] LABS: Troponin I < 0.012 ng/mL (0.01-0.034)
[2019-05-03] MEDS: SODIUM CHLORIDE 0.9% 1,000 ML 150 ML IV (12:45)
[2019-05-03] MEDS: MECLIZINE HCL 12.5 MG TABLET 25 MG PO (12:46)
[2019-05-03 13:30] VITALS: BP 128/63; PULSE 66; RESP 14
[2019-05-03 14:30] VITALS: BP 138/77; PULSE 66; RESP 12; O2SAT 100
== END 2019-05-03 14:30 | disposition home or self-care (01) ==
PROVIDERS: Emergency Provider Nurse Practitioner; PCP Internal Medicine
DX: H81.13 Benign paroxysmal vertigo, bilateral (principal)
CPT/HCPCS: 71045; 80053; 84484; 85025; 93005; 93010; 96360; 96361; 99284

== ENCOUNTER → 2020-01-24 11:08 | Outpatient (CLI) | payer MEDICARE, OTHER, SELFPAY ==
--- NOTE | 2020-01-24 | DI.MG.S_ITS ---
BILATERAL DIGITAL SCREENING MAMMOGRAM 3D/2D WITH CAD: 01/24/2020 CLINICAL: Routine screening. Comparison is made to exams dated: 12/09/2018 mammogram - [facility], 10/14/2017 mammogram, and 08/17/2016 mammogram - [facility]. There are scattered fibroglandular elements in both breasts. Current study was also evaluated with a Computer Aided Detection (CAD) system. No significant masses, calcifications, or other findings are seen in either breast. There has been no significant interval change. IMPRESSION: NEGATIVE There is no mammographic evidence of malignancy. A 1 year screening mammogram is recommended. This exam was interpreted at Station ID: [id number]. NOTE: For mammograms, a report in lay terms will be sent to the patient. Approximately 15% of breast malignancies will not be visualized mammographically. In the management of a palpable breast mass, a negative mammogram must not discourage biopsy of a clinically suspicious lesion. Electronically Signed By: Cookie munroe/christian:01/30/2020 12:43:22 letter sent: Normal Exam ACR BI-RADS Category 1: Negative [id number]
[2020-01-24 13:01] LABS: Hemoglobin A1C% w Est Avg Glu 6.3 % (4.0-6.0)
[2020-01-24 13:15] LABS: Alanine Aminotransferase 17 IU/L (<35); Albumin 4.6 g/dL (3.5-5.0); Albumin Globulin Ratio 1.5 (1.0-2.8); Alkaline Phosphatase 86 U/L (38-126); Aspartate Aminotransferase 19 IU/L (14-36); BUN Creatinine Ratio 26.2 (6-22); Bilirubin Total 0.8 mg/dL (0.2-1.3); Blood Urea Nitrogen 17 mg/dL (7-17); Carbon Dioxide 31 mmol/L (22-32); Chloride 93 mmol/L (98-107); Cholesterol 187 mg/dL (140-199); Estimated Glomerular Filt Rate > 60.0 mL/min (>60); Globulin 3.1 g/dL (1.7-4.1); Glucose 109 mg/dL (80-110); HDL Cholesterol 60 mg/dL (40-60); HEMOLYSIS < 15 (0-50); LDL Cholesterol Calculated 88 mg/dL (<100); Potassium 4.4 mmol/L (3.4-5.1); Sodium 131 mmol/L (137-145); Total Protein 7.7 g/dL (6.3-8.2); Triglycerides 193 mg/dL (35-150)
[2020-01-24 14:25] LABS: Creatinine Urine Random 26.8 mg/dL
[2020-01-24 14:38] LABS: Microalbumin Urine Random < 0.6 mg/dL (0-1.6)
[2020-01-24 14:42] LABS: Vitamin D 25 Hydroxy (D3) 55.2 ng/mL (30.0-100.0)
== END ==
PROVIDERS: PCP Internal Medicine; Referring Provider Internal Medicine; Visit Provider Internal Medicine
DX: Z12.31 Encounter for screening mammogram for malignant neoplasm of breast (principal); M81.0 Age-related osteoporosis without current pathological fracture; E11.9 Type 2 diabetes mellitus without complications; E78.5 Hyperlipidemia, unspecified; R80.9 Proteinuria, unspecified
CPT/HCPCS: 36415; 77063; 77067; 80053; 80061; 82043; 82306; 82570; 83036

== ENCOUNTER → 2020-01-30 13:53 | Outpatient (CLI) | payer MEDICARE, OTHER, SELFPAY ==
[2020-01-30 16:09] LABS: Creatinine Urine Random 28.7 mg/dL
[2020-01-30 16:11] LABS: Alanine Aminotransferase 16 IU/L (<35); Albumin 4.4 g/dL (3.5-5.0); Albumin Globulin Ratio 1.6 (1.0-2.8); Alkaline Phosphatase 75 U/L (38-126); Aspartate Aminotransferase 18 IU/L (14-36); BUN Creatinine Ratio 27.9 (6-22); Bilirubin Total 0.5 mg/dL (0.2-1.3); Blood Urea Nitrogen 19 mg/dL (7-17); Calcium 9.8 mg/dL (8.4-10.2); Carbon Dioxide 30 mmol/L (22-32); Chloride 95 mmol/L (98-107); Estimated Glomerular Filt Rate > 60.0 mL/min (>60); Globulin 2.8 g/dL (1.7-4.1); Glucose 93 mg/dL (80-110); HEMOLYSIS < 15 (0-50); Potassium 4.5 mmol/L (3.4-5.1); Sodium 133 mmol/L (137-145); Total Protein 7.2 g/dL (6.3-8.2)
[2020-01-30 16:16] LABS: Microalbumin Urine Random < 0.6 mg/dL (0-1.6)
== END ==
PROVIDERS: PCP Internal Medicine; Referring Provider Internal Medicine; Visit Provider Internal Medicine
DX: E78.5 Hyperlipidemia, unspecified (principal); E11.9 Type 2 diabetes mellitus without complications
CPT/HCPCS: 80053; 82043; 82570

== ENCOUNTER → 2020-02-26 12:49 | Outpatient (CLI) | payer MEDICARE, OTHER, SELFPAY ==
--- NOTE | 2020-02-26 12:56 | DI.MRI.S_ITS ---
PROCEDURE: MR LUMBAR SPINE WO CON INDICATIONS: Radiculopathy, lumbar region TECHNIQUE: Noncontrast sagittal T1 spin echo and T2 fast echo, sagittal STIR, axial T1 and T2 fast spin echo through the lumbar spine. In cases with scoliosis, additional coronal T2 fast spin echo may be performed. COMPARISON: [facility], MR, MR LUMBAR SPINE WO CON, 10/05/2018, 12:35. [facility], CR, XR LUMBAR SPINE 2 OR 3 VIEWS, 09/30/2018, 15:02. FINDINGS: Image quality: Excellent. Alignment and Curvature: 5 lumbar type vertebral bodies are present by plain film. There is mild grade 1 retrolisthesis of T12 on L1, L1 on L2, L2 on L3, and L3 on L4. Mild grade 1 anterolisthesis of L4 on L5 and L5 on S1. Bone Marrow: Marrow is of normal overall signal. No acute vertebral body compression fractures. Moderate reactive signal within the endplates adjacent to the T12-L1 intervertebral disc. Mild reactive signal within the endplates adjacent to the L1-L2, L2-L3, L3-L4, and L4-L5 intervertebral discs. Spinal Cord: Conus medullaris terminates at the L2-L3 disc space level. Visualized cord demonstrates normal signal and size. Paraspinous Soft Tissues: No paravertebral masses. Bilateral renal cysts are present, as before. L1-L2: Mild disc desiccation and diffuse disc bulge. Mild facet and ligamentum flavum hypertrophy. Mild canal stenosis. No foraminal stenosis. L2-L3: Moderate disc desiccation. Mild diffuse disc bulge. Mild bilateral facet hypertrophy. Mild canal stenosis. Mild bilateral foraminal stenosis. L3-L4: Moderate disc desiccation. Mild diffuse disc bulge. Mild facet and ligamentum flavum hypertrophy. Mild epidural lipomatosis. Increased, moderate canal stenosis. Increased, mild bilateral foraminal stenosis. L4-L5: Moderate disc height loss and desiccation. Moderate diffuse disc bulge with superimposed left posterolateral disc extrusion which extends superiorly within the left neural foramen. Moderate bilateral facet hypertrophy. Mild ligamentum flavum hypertrophy. Increased, severe canal stenosis. No change in severe left greater than right foraminal stenosis with bilateral, left greater than right L4 nerve root compression. L5-S1: Severe disc height loss and desiccation. Mild diffuse disc bulge. Mild bilateral facet hypertrophy. Mild canal stenosis. Severe bilateral foraminal stenosis with bilateral L5 nerve root compression. No change. IMPRESSION: 1. Multilevel degenerative disc and facet disease, as well as ligamentum flavum hypertrophy and epidural lipomatosis. 2. Multilevel spondylolisthesis ease. 3. Multilevel canal stenoses, worst at L4-L5 where there is severe canal stenosis. Moderate canal stenosis at L3-L4 is present. 4. Multilevel foraminal stenoses, worst at L4-L5 and L5-S1 where there is associated intraforaminal nerve root compression. Recommend correlation with clinical symptoms to ascertain relevance of these findings. Dictated by: Ilsa Dwyer M.D. on 02/26/2020 at 14:46 Approved by: Ilsa Dwyer M.D. on 02/26/2020 at 14:50
[2020-02-26 14:38] LABS: BUN Creatinine Ratio 28.6 (6-22); Blood Urea Nitrogen 18 mg/dL (7-17); Calcium 9.9 mg/dL (8.4-10.2); Carbon Dioxide 28 mmol/L (22-32); Chloride 105 mmol/L (98-107); Creatine Kinase 52 U/L (30-135); Estimated Glomerular Filt Rate > 60.0 mL/min (>60); Glucose 110 mg/dL (80-110); HEMOLYSIS 18 (0-50); Potassium 4.5 mmol/L (3.4-5.1); Sodium 137 mmol/L (137-145)
[2020-02-26 15:51] LABS: Sodium Urine Random 32 mmol/L (30-90)
[2020-02-27 12:09] LABS: Osmolality Urine 166 mOsmol/kg (.); Osmolality, Serum 292 mOsmol/kg (280-301)
[2020-02-29 01:11] LABS: Aldolase 3.9 U/L (3.3-10.3)
== END ==
PROVIDERS: PCP Internal Medicine; Referring Provider Internal Medicine; Visit Provider Internal Medicine
DX: M51.16 Intervertebral disc disorders with radiculopathy, lumbar region (principal); M51.17 Intervertebral disc disorders with radiculopathy, lumbosacral region; M43.16 Spondylolisthesis, lumbar region; M43.17 Spondylolisthesis, lumbosacral region; M48.061 Spinal stenosis, lumbar region without neurogenic claudication; M48.07 Spinal stenosis, lumbosacral region; E87.1 Hypo-osmolality and hyponatremia; E78.5 Hyperlipidemia, unspecified; E88.2 Lipomatosis, not elsewhere classified; R29.898 Other symptoms and signs involving the musculoskeletal system
CPT/HCPCS: 36415; 72148; 80048; 82085; 82550; 83930; 83935; 84300

== ENCOUNTER → 2020-05-17 14:49 | Outpatient (CLI) | payer MEDICARE, OTHER, SELFPAY ==
--- NOTE | 2020-05-17 | DI.RAD.S_ITS ---
PROCEDURE: XR LUMBAR SPINE 2-3V INDICATIONS: LOW BACK PAIN, SPONDYLOLISTHESIS TECHNIQUE: 3 views of the lumbar spine were acquired. COMPARISON: None. FINDINGS: Bones: 5 [id number] vertebrae are present. There is normal bony alignment. Mild compression fracture at the L4 level with vertebral body height loss estimated at roughly 17%. There is grade 1 spondylolisthesis also at the L4-L5 level. Severe L4-L5 and L5-S1 disc degeneration and moderate facet joint arthropathy. Neural foraminal narrowing at the L5-S1 level. Soft tissues: Overlying bowel gas pattern is normal. No suspicious soft tissue calcifications. IMPRESSION: 1. Mild compression fracture at the L4 level which appears new from prior MRI dated 10/05/2018. If acute fracture is suspected, MRI could be performed for further characterization. 2. Multilevel spondylosis. Dictated by: Valdo VILLAGOMEZ Interpreted: Keysha Wilkins MD on 05/17/2020 at 16:22 Approved by: eKysha Wilkins M.D. on 05/17/2020 at 16:55
== END ==
PROVIDERS: PCP Physician Assistant; Referring Provider Physician Assistant; Visit Provider Physician Assistant
DX: M54.5 Low back pain (principal); M43.16 Spondylolisthesis, lumbar region; S32.049A Unspecified fracture of fourth lumbar vertebra, initial encounter for closed fracture
CPT/HCPCS: 72100

== ENCOUNTER → 2020-06-18 13:33 | Outpatient (CLI) | payer MEDICARE, OTHER, SELFPAY ==
[2020-06-18 15:50] LABS: COVID19 -Nasal RAPID Negative (Negative)
== END ==
PROVIDERS: PCP Physician Assistant; Visit Provider Physical Medicine & Rehabilitation
DX: Z20.822 Contact with and (suspected) exposure to COVID-19 (principal)
CPT/HCPCS: 87635; C9803

== ENCOUNTER 2020-06-20 12:34 | Outpatient (CLI) | payer MEDICARE, OTHER, SELFPAY ==
[2020-06-20] VITALS (8 sets, daily range): BP systolic 123–151; BP diastolic 66–77; PULSE 60–70; RESP 13–18; TEMP 36.4–36.6; O2SAT 98–100
--- NOTE | 2020-06-20 12:37 | DI.RAD.S_ITS ---
PROCEDURE: PAIN L INTERLAMINAR/CAUDAL INJ INDICATIONS: SPONDYLOSIS COMPARISON: [facility], CR, XR LUMBAR SPINE 2-3V, 05/17/2020, 15:16. FINDINGS: Fluoroscopic spot filming was performed to verify placement of a spinal needle at the L4-L5 level, as labeled on the films. Appropriate location of the needle tip was confirmed by injection of iodinated contrast. IMPRESSION: Intraprocedural examination within normal limits. Dictated by: Tobi Reed M.D. on 06/20/2020 at 14:39 Approved by: Tobi Reed M.D. on 06/20/2020 at 14:40
[2020-06-20] MEDS: MIDAZOLAM 5 MG/5 ML VIAL IV (13:55)
[2020-06-20] MEDS: BETAMETHASONE 30 MG/5 ML MDV 6 MG INJ (13:58)
[2020-06-20] MEDS: BUPIVACAINE 0.25% (PF) VIAL 2 ML INJ (13:58)
[2020-06-20] MEDS: DEXAMETHASONE 10 MG/ML VIAL 20 MG INJ (13:58)
[2020-06-20] MEDS: IOPAMIDOL 15 ML VIAL 3 ML INJ (13:58)
--- NOTE | 2020-06-20 14:09 | PM.PROC.IR.1 ---
Date/Time/Diagnoses Date of procedure: 06/20/20 Time of procedure: 14:09 Pre-procedure diagnosis: 1. HNP WITH RADICULAR FEATURES, 2. MULTILEVEL CENTRAL STENOSIS, Post-procedure diagnosis: same Procedure Notes Procedure: 1. FLUOROSCOPICALLY GUIDED CONTRAST CONTROLLED INTERLAMINAR EPIDURAL STEROID INJECTION -L4/5 Indications: Leona is referred by [facility] for treatment of Bilateral Foraminal Stenosis R>L LE symptoms. Physician: Pramod Jimenez Total Fluoroscopy time (seconds): 7 Total sedation minutes: 10 Complications: none Procedure in detail & Post-procedure care: FINDINGS Multilevel Central Spinal Stenosis with Nerve Root Compression DESCRIPTION OF PROCEDURE Fluoroscopically guided, contrast-controlled L4/5 translaminar epidural steroid injection. Following review of allergy and review of potential side effects and complications, including, but not necessarily limited to, infection, allergic reaction, local tissue breakdown, temporary as well as permanent nerve injury, paralysis, stroke and possible , the patient indicated that the patient understood and agreed to proceed. An informed consent document was signed by the patient, witnessed by a nurse, and placed in the patient's chart. Additionally, other treatment options including modalities, medications, and physical therapy were reviewed with the patient. After review of previous anaesthesic history and IV conscious sedation the patient was deemed safe to proceed with today?s procedure with IV conscious sedation as ASA class II designation. Safety time-out was performed to confirm patient ID, procedure to be performed and site of procedure. IV sedation was accomplished with a combination of 2mg of Versed was administered by the RN after DO order, titrated to patient comfort during the course of the procedure while the patient remained responsive to all verbal commands In the prone position, following sterile prep and drape of the lumbar region, the L4/5 translaminar space was identified fluoroscopically. The skin was anesthetized via a 25-gauge, 1.5inch needle with 1% lidocaine solution. At this point, a 22-gauge short bevel spinal needle was atraumatically introduced and advanced under fluoroscopic guidance into the region of the L4/5 translaminar space. Depth was confirmed on lateral view. Radiological data, including multiple fluoroscopic views of the lumbar spine, reveal a spinal needle at the L4/5 translaminar space. Lateral views then show placement of the needle in the epidural space. Subsequent views show contrast material flowing superiorly and inferiorly in the epidural space. No vascular or intrathecal uptake is observed. At this point, using loss of resistance technique with saline and air, the epidural space was entered. This was confirmed following negative aspiration with injection of approximately 1.5cc of Isovue 200, showing excellent epidural flow without vascular or intrathecal uptake. At this point, 1cc of 1% lidocaine solution combined with 3cc or 20mg of dexamethasone and 6mg betamethasone was injected without incident. The patient tolerated the procedure well without signs or symptoms of complications prior to transfer to the recovery area continued monitoring without incident. The patient was then transferred to the recovery area where they were observed for an appropriate period of time after the injection. The patient reported a VAS score of 6 prior to the procedure and a post-procedure VAS of 0. POST OP INSTRUCTIONS The patient was provided a Pain Log to continue to record their response to the target-specific procedure prior to follow-up visit with their referring physician. Additionally, specific post-injection care instructions and a contact number to our office were provided if concerns arise regarding possible complications associated with the procedure are suspected.
== END 2020-06-20 14:25 | disposition home or self-care (01) ==
LOC: RAD 12:37
PROVIDERS: PCP Physician Assistant; Referring Provider Physical Medicine & Rehabilitation; Visit Provider Physical Medicine & Rehabilitation
DX: M51.16 Intervertebral disc disorders with radiculopathy, lumbar region (principal); M48.061 Spinal stenosis, lumbar region without neurogenic claudication
CPT/HCPCS: 62323; 99152; J0702; J1100; J2250; J3010

== ENCOUNTER → 2020-08-20 14:22 | Outpatient (CLI) | payer MEDICARE, OTHER, SELFPAY ==
[2020-08-20 15:00] LABS: COVID19 -Nasal RAPID Negative (Negative)
== END ==
PROVIDERS: PCP Physician Assistant; Visit Provider Physical Medicine & Rehabilitation
DX: Z20.822 Contact with and (suspected) exposure to COVID-19 (principal)
CPT/HCPCS: 87635; C9803

== ENCOUNTER 2020-08-22 12:32 | Outpatient (CLI) | payer MEDICARE, OTHER, SELFPAY ==
[2020-08-22] VITALS (7 sets, daily range): BP systolic 111–136; BP diastolic 62–80; PULSE 60–67; RESP 10–20; TEMP 36.1; O2SAT 95–100
--- NOTE | 2020-08-22 12:34 | DI.RAD.S_ITS ---
PROCEDURE: PAIN L/S FACET INJ/BLK 1ST KARINE COMPARISON: None. INDICATIONS: SPONDYLOSIS FINDINGS: Fluoroscopic spot filming was performed to verify placement of spinal needles at the L4-L5 and L5-S1 level(s), as labeled on the films. Appropriate location(s) of the needle tip(s) was confirmed by injection of iodinated contrast. Dictated by: Vincenzo Mejia M.D. on 08/22/2020 at 14:26 Approved by: Vincenzo Mejia M.D. on 08/22/2020 at 14:26
[2020-08-22] MEDS: MIDAZOLAM 5 MG/5 ML VIAL IV (13:20)
[2020-08-22] MEDS: BETAMETHASONE 30 MG/5 ML MDV 12 MG INJ (13:30)
[2020-08-22] MEDS: IOPAMIDOL 15 ML VIAL 3 ML INJ (13:30)
--- NOTE | 2020-08-22 13:38 | PM.PROC.IR.1 ---
Date/Time/Diagnoses Date of procedure: 08/22/20 Time of procedure: 13:38 Pre-procedure diagnosis: 1. FACET ARTHROPATHY 2. AXIAL LBP 3. MULTILEVEL DDD Post-procedure diagnosis: same Procedure Notes Procedure: 1. FLUOROSCOPICALLY GUIDED CONTRAST CONTROLLED FACET JOINT INJECTIONS BILATERAL L4/5, L5/S1 Indications: Leona is referred by [facility] for treatment of Axial LBP Physician: Pramod Jimeenz Total Fluoroscopy time (seconds): 10 Total sedation minutes: 12 Complications: none Procedure in detail & Post-procedure care: FINDINGS Multilevel Facet Arthropathy with Clinically significant axial LBP DESCRIPTION OF PROCEDURE Fluoroscopically guided, contrast-controlled bilateral L4/5, L5/S1 facet joint injections. Following review of allergy and review of potential side effects and complications, including, but not necessarily limited to, infection, allergic reaction, local tissue breakdown, stroke, temporary or permanent nerve injury, paralysis, and possible , the patient indicated that the patient understood and agreed to proceed. An informed consent document was signed by the patient, witnessed by a nurse, and placed in the patient's chart. Additionally, other treatment options including medications, modalities, and physical therapy were reviewed with the patient. After review of previous anaesthesic history and IV conscious sedation the patient was deemed safe to proceed with today?s procedure with IV conscious sedation as ASA class II designation. Safety time-out was performed to confirm patient ID, procedure to be performed and site of procedure. IV sedation was accomplished with a combination of 2mg of Versed was administered by the RN after DO order, titrated to patient comfort during the course of the procedure while the patient remained responsive to all verbal commands In the prone position, following sterile prep and drape of the lumbar region, the posterior aspect of the L4/5, L5/S1 facet joints were identified fluoroscopically. The skin was anesthetized via a 25-gauge 1.5inch needle with 1% lidocaine solution into the corresponding facet joints. At this point, a 22-gauge 3.5-inch spinal needle was atraumatically introduced and advanced under fluoroscopic guidance into the corresponding facet joints. Following negative aspiration, injections of approximately 0.2cc of Isovue 200 confirmed interarticular placement without vascular uptake. The identical procedure was then performed at the L4/5, L5/S1 facet joints on the left. Radiological data, including multiple fluoroscopic views of the lumbosacral spine, reveal a spinal needle at the L4/5, L5/S1 facet joints bilaterally. Subsequent views show flow of contrast material both superiorly and inferiorly within the joint space without vascular or intrathecal uptake. At this point, a total of 0.5cc including a mixture of 0.25cc Marcaine and 0.25cc betamethasone was injected without complication into each of the corresponding facet joints. The patient tolerated the procedure well without signs or symptoms of complications prior to transfer to the recovery area continued monitoring without incident. The patient was then transferred to the recovery area where they were observed for an appropriate period of time after the injection. The patient reported a VAS score of 7 prior to the procedure and a post-procedure VAS of 0. POST OP INSTRUCTIONS The patient was provided a Pain Log to continue to record their response to the target-specific procedure prior to follow-up visit with their referring physician. Additionally, specific post-injection care instructions and a contact number to our office were provided if concerns arise regarding possible complications associated with the procedure are suspected.
[2020-08-22] MEDS: BUPIVACAINE 0.5% (PF) VIAL 5 ML INJ (13:42)
[2020-08-22] MEDS: LIDOCAINE 1% 20 ML 10 ML INJ (13:46)
== END 2020-08-22 13:55 | disposition home or self-care (01) ==
LOC: RAD 12:33
PROVIDERS: PCP Physician Assistant; Referring Provider Physical Medicine & Rehabilitation; Visit Provider Physical Medicine & Rehabilitation
DX: M47.816 Spondylosis without myelopathy or radiculopathy, lumbar region (principal); M47.817 Spondylosis without myelopathy or radiculopathy, lumbosacral region; M51.36 Other intervertebral disc degeneration, lumbar region; M51.37 Other intervertebral disc degeneration, lumbosacral region; M54.5 Low back pain
CPT/HCPCS: 64493; 64494; 99152; J0702; J2250; J3010

== ENCOUNTER → 2020-10-29 09:46 | Outpatient (CLI) | payer MEDICARE, OTHER, SELFPAY ==
[2020-10-29 13:52] LABS: COVID19 -Nasal RAPID Negative (Negative)
== END ==
PROVIDERS: PCP Physician Assistant; Visit Provider Physical Medicine & Rehabilitation
DX: Z20.822 Contact with and (suspected) exposure to COVID-19 (principal)
CPT/HCPCS: 87635; C9803

== ENCOUNTER 2020-10-31 12:32 | Outpatient (CLI) | payer MEDICARE, OTHER, SELFPAY ==
[2020-10-31] VITALS (7 sets, daily range): BP systolic 125–144; BP diastolic 60–82; PULSE 55–68; RESP 10–22; TEMP 36.4; O2SAT 99–100
--- NOTE | 2020-10-31 12:40 | DI.RAD.S_ITS ---
PROCEDURE: PAIN L/S FACET INJ/BLK 1ST KARINE COMPARISON: [facility], XA, PAIN L/S FACET INJ/BLK 1ST KARINE, 08/22/2020, 13:25. INDICATIONS: SPONDYLOSIS FINDINGS: Bilateral L4-L5, L5-S1 and S1-S2 access needles near the neural foramen. IMPRESSION: Access needles positioned as described above. Dictated by: Melba Martin MD, PhD on 10/31/2020 at 13:36 Approved by: Melba Martin MD, PhD on 10/31/2020 at 13:37
[2020-10-31] MEDS: MIDAZOLAM 5 MG/5 ML VIAL IV (13:14)
[2020-10-31] MEDS: IOPAMIDOL 15 ML VIAL 3 ML INJ (13:21)
[2020-10-31] MEDS: BUPIVACAINE 0.5% (PF) VIAL 5 ML INJ (13:21)
[2020-10-31] MEDS: LIDOCAINE 1% 20 ML 10 ML INJ (13:22)
--- NOTE | 2020-10-31 13:31 | P.PCN_ITS ---
Date/Time/Diagnoses Date of procedure: 10/31/20 Time of procedure: 13:31 Pre-procedure diagnosis: 1. FACET ARTHROPATHY Post-procedure diagnosis: same Procedure Notes Procedure: 1. BILATERAL- L4, L5 and S1 DIAGNOSTIC MB BLOCKS with LA Anesthetic Indications: Leona is referred by [facility] for treatment of Bilateral Axial LBP. Physician: Pramod Jimenez Total Fluoroscopy time (seconds): 12 Total sedation minutes: 13 Complications: none Procedure in detail & Post-procedure care: DESCRIPTION OF PROCEDURE Fluoroscopically guided, contrast-controlled bilateral L4, L5 and S1 medial branch blocks with 0.5cc of 0.5% Marcaine. Following review of allergy and review of potential side effects and complications, including, but not necessarily limited to, infection, allergic reaction, local tissue breakdown, nerve injury, paralysis, stroke and possible , the patient indicated that the patient understood and agreed to proceed. An informed consent document was signed by the patient, witnessed by a nurse, and placed in the patient's chart. After review of previous anaesthesic history and IV conscious sedation the patient was deemed safe to proceed with today's procedure with IV conscious sedation as ASA class II designation. Safety time-out was performed to confirm patient ID, procedure to be performed and site of procedure. IV sedation was accomplished with a combination of 2mg of Versed was administered by the RN after DO order, titrated to patient comfort during the course of the procedure while the patient remained responsive to all verbal commands In the prone position, following sterile prep and drape of the lumbar region, the right L4, L5 and S1 anatomical location of the medial branch of the dorsal ramus was identified fluoroscopically. Subsequently an anesthetic skin wheal using 1% lidocaine solution was initiated at each of the anatomical spots. Subsequently then a 22-gauge 3.5-inch spinal needle was atraumatically introduced and advanced under fluoroscopic guidance at each of the corresponding sites at the right L4, L5 and S1 MB. After negative aspiration, 0.2cc of Isovue 200 was injected, confirming placement without vascular or intrathecal uptake. Subsequently then 0.5cc of 0.5% Marcaine solution was injected at each of the corresponding sites at the right L4, L5 and S1 medial branch locations. The identical procedure was replicated on the left. The patient tolerated the procedure well without signs or symptoms of complications prior to transfer to the recovery area continued monitoring without incident. Post-procedure, the patient was monitored initiating provocative activities to measure the amount of relief from block of the facetogenic pain. The patient reported a VAS of 7 prior to the procedure and a post-procedure VAS of 1. It has been a pleasure to assist in the diagnostic and therapeutic care of your patient. POST OP INSTRUCTIONS The patient was provided with a Pain Log to complete over the next several hours and subsequent days prior to the patient's follow up with the ordering physician. 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 The patient is aware, was provided, once again, with a Pain Log and will follow up with the referring physician for review and clinical correlation
== END 2020-10-31 13:45 | disposition home or self-care (01) ==
PROVIDERS: PCP Physician Assistant; Referring Provider Physical Medicine & Rehabilitation; Visit Provider Physical Medicine & Rehabilitation
DX: M47.816 Spondylosis without myelopathy or radiculopathy, lumbar region (principal); M47.817 Spondylosis without myelopathy or radiculopathy, lumbosacral region; M54.5 Low back pain
CPT/HCPCS: 64493; 64494; 99152; J2250; J3010

== ENCOUNTER → 2021-02-01 11:06 | Outpatient (CLI) | payer MEDICARE, OTHER, SELFPAY ==
--- NOTE | 2021-02-01 | DI.MG.S_ITS ---
BILATERAL DIGITAL SCREENING MAMMOGRAM 3D/2D WITH CAD: 02/01/2021 CLINICAL: Routine screening. Comparison is made to exams dated: 01/24/2020 mammogram, 12/09/2018 mammogram - [facility], and 10/14/2017 mammogram - [facility]. There are scattered fibroglandular elements in both breasts. Current study was also evaluated with a Computer Aided Detection (CAD) system. No significant masses, calcifications, or other findings are seen in either breast. There has been no significant interval change. IMPRESSION: NEGATIVE There is no mammographic evidence of malignancy. A 1 year screening mammogram is recommended. This exam was interpreted at Station ID: [id number]. NOTE: For mammograms, a report in lay terms will be sent to the patient. Approximately 15% of breast malignancies will not be visualized mammographically. In the management of a palpable breast mass, a negative mammogram must not discourage biopsy of a clinically suspicious lesion. Electronically Signed By: Onofre Raymundo M.D., jr/christian:02/03/2021 11:17:09 letter sent: Normal Exam ACR BI-RADS Category 1: Negative [id number]
== END ==
PROVIDERS: PCP Physician Assistant; Referring Provider Physician Assistant; Visit Provider Physician Assistant
DX: Z12.31 Encounter for screening mammogram for malignant neoplasm of breast (principal)
CPT/HCPCS: 77063; 77067

== ENCOUNTER → 2021-05-09 11:42 | Outpatient (CLI) | payer MEDICARE, OTHER, SELFPAY ==
--- NOTE | 2021-05-09 | DI.MRI.S_ITS ---
PROCEDURE: MR LUMBAR SPINE WO CON INDICATIONS: Spinal stenosis, lumbar region without neurogenic claudicati TECHNIQUE: Noncontrast sagittal T1 spin echo and T2 fast echo, sagittal STIR, axial T1 and T2 fast spin echo through the lumbar spine. In cases with scoliosis, additional coronal T2 fast spin echo may be performed. COMPARISON: [facility], MR, MR LUMBAR SPINE WO CON, 02/26/2020, 13:23. FINDINGS: Image quality: Excellent. Alignment and Curvature: Degenerative anterior spondylolisthesis at L4-5, grade 1 Bone Marrow: Modic type 1 degenerative edematous endplate changes at T12-L1 and L4-5, increased in the prior exam Spinal Cord: Conus medullaris terminates at the L1 level. Visualized cord demonstrates normal signal and size. Paraspinous Soft Tissues: No paravertebral masses. T12-L1: Disc space narrowing and circumferential disc bulge present without central stenosis. Moderate bilateral foraminal stenosis present. L1-L2: Disc height is preserved. No central or foraminal stenosis L2-L3: Mild disc height loss and circumferential disc bulge results in moderate central stenosis with effacement of both lateral recesses. Moderate bilateral foraminal stenosis. L3-L4: Disc space narrowing with circumferential disc bulge and ligamentum flavum laxity combines with hypertrophic facet joints to result in severe central stenosis. Moderate bilateral foraminal stenosis. L4-L5: Disc space narrowing, circumferential disc bulge and grade 1 anterior spondylolisthesis related to hypertrophic facet joints results in severe central stenosis severe bilateral foraminal stenosis present. L5-S1: Disc space narrowing and circumferential disc bulge present results in mild central stenosis. Moderate left and right foraminal stenosis IMPRESSION: 1. Multilevel degenerative disc disease and arthropathy results in varying degrees of central and foraminal stenosis including severe central stenosis at L3-4 and L4-5 as well as severe bilateral foraminal stenosis at L4-5. 2. Degenerative Modic type 1 edematous endplate changes at T12-L1 and L4-5 associated with grade 1 degenerative anterior spondylolisthesis at L4-5. Approved by: Johan Mathias M.D. on 05/09/2021 at 14:16
== END ==
PROVIDERS: PCP Physician Assistant; Referring Provider Psychiatry & Neurology Neurology; Visit Provider Psychiatry & Neurology Neurology
DX: M48.061 Spinal stenosis, lumbar region without neurogenic claudication (principal); M51.36 Other intervertebral disc degeneration, lumbar region; M47.816 Spondylosis without myelopathy or radiculopathy, lumbar region; M43.16 Spondylolisthesis, lumbar region
CPT/HCPCS: 72148

== ENCOUNTER → 2021-06-09 11:11 | Outpatient (CLI) | payer MEDICARE, OTHER, SELFPAY ==
[2021-06-09 13:19] LABS: COVID19 -Nasal RAPID Negative (Negative)
== END ==
PROVIDERS: PCP Physician Assistant; Visit Provider Physical Medicine & Rehabilitation
DX: Z20.822 Contact with and (suspected) exposure to COVID-19 (principal); Z01.812 Encounter for preprocedural laboratory examination
CPT/HCPCS: 87635; C9803

== ENCOUNTER 2021-06-10 07:25 | Outpatient (CLI) | payer MEDICARE, OTHER, SELFPAY ==
[2021-06-10] VITALS (15 sets, daily range): BP systolic 103–135; BP diastolic 58–67; PULSE 57–70; RESP 13–20; TEMP 36.2; O2SAT 96–100
--- NOTE | 2021-06-10 07:27 | DI.RAD.S_ITS ---
PROCEDURE: PAIN L/S MED/LAT N RFA BILAT INDICATIONS: SPONDYLOSIS COMPARISON: [facility], MR, MR LUMBAR SPINE WO CON, 05/09/2021, 12:01. [facility], XA, PAIN L/S FACET INJ/BLK 1ST KARINE, 10/31/2020, 13:18. FINDINGS: Fluoroscopic spot filming was performed to verify placement of spinal needles on both sides at the L4, L5, and S1 levels, as labeled on the films. IMPRESSION: Images during rhizotomy within normal limits. Dictated by: Tobi Reed M.D. on 06/10/2021 at 10:57 Approved by: Tobi Reed M.D. on 06/10/2021 at 10:57
[2021-06-10] MEDS: MIDAZOLAM 5 MG/5 ML VIAL IV (08:17)
[2021-06-10] MEDS: LIDOCAINE 1% 20 ML (08:18)
[2021-06-10] MEDS: BUPIVACAINE 0.5% (PF) VIAL 5 ML INJ (08:18)
--- NOTE | 2021-06-10 08:58 | P.PCN_ITS ---
Date/Time/Diagnoses Date of procedure: 06/10/21 Time of procedure: 08:59 Pre-procedure diagnosis: 1. RECALCITRANT FACET ARTHROPATHY Post-procedure diagnosis: same Procedure Notes Procedure: 1. BILATERAL L4 AND L5 MEDIAL BRANCH RADIOFREQUENCY NEUROTOMY AND S1 DORSAL RAMUS BRANCH RADIOFREQUENCY NEUROTOMY Indications: Leona is referred by [facility] for treatment of facet arthropathy. Physician: Pramod Jimenez Total Fluoroscopy time (seconds): 19 Total sedation minutes: 41 Complications: none Procedure in detail & Post-procedure care: DESCRIPTION OF PROCEDURE Bilateral L4 and L5 medial branch radiofrequency neurotomy and bilateral S1 dorsal ramus radiofrequency neurotomy under fluoroscopy with conscious sedation. The patient is well known to this clinic having undergone previous facet injections with good but temporary relief. The patient has experienced appropriate, concordant relief with previous facet and median branch blocks but the patient's pain has been recalcitrant to further conservative measures. Therefore, based upon the patient's relief and persistent symptoms, the patient is considered an appropriate candidate for facet rhizotomy. All of the patient's questions regarding the risks versus benefits of the procedure, including, but not limited to, bleeding, infection, temporary as well as lasting nerve injury, paralysis, stroke, and , as well treatment alternatives were answered to satisfaction. After obtaining informed consent, denial of pertinent drug allergies, as well as being made aware of the potential risks of bleeding, infection, spinal cord trauma, paralysis, temporary and permanent nerve damage, seizure, stroke, and possible , the patient was brought to the fluoroscopy suite and positioned prone on the fluoroscopy table. The lumbar region was prepped with Betadine and covered with a fenestrated drape in the usual sterile fashion. Appropriate monitors applied including pulse oximeter, pulse, and blood pressure for regular monitoring throughout the procedure. After review of previous anaesthesic history and IV conscious sedation the patient was deemed safe to proceed with today's procedure with IV conscious sedation as ASA class II designation. Safety time-out was performed to confirm patient ID, procedure to be performed and site of procedure. IV sedation was accomplished with a combination of 3mg of Versed administered by the RN after DO order, titrated to patient comfort during the course of the procedure while the patient remained responsive to all verbal commands. After local infiltration using 1% lidocaine, under fluoroscopic guidance, a 10- cm RF insulated needle with a 10-mm active tip was positioned parallel to the junction of the right sacral ala and the superior articulating process where the S1 dorsal ramus resides. Needle placement was confirmed with motor stimulation of .5v on the right which produced local stimulation without radicular component. The stimulation was then increased to 2v with, once again, only local multifidus stimulation without radicular component. The needle was then removed and the identical procedure was performed along the length of the right L5 medial branch with motor stimulation at .7v on the right. The identical procedure was once again performed along the length of the right L4 medial branch with motor stimulation of .5v on the right. The medial branches were then anesthetised with 0.5% Marcaine. This was then followed by two discreet lesions performed at 80 degrees Celsius for 90 seconds each. The identical procedure was repeated on the left. The patient tolerated the procedure well without signs or symptoms of complications prior to transfer to the recovery area continued monitoring without incident. The patient was then transferred to the recovery area where they were observed for an appropriate period of time after the injection. The patient reported a VAS score of 9 prior to the procedure and a post-procedure VAS of 0. POST OP INSTRUCTIONS The patient was provided a Pain Log to continue to record the patient's response to the target-specific procedure prior to the patient's follow-up visit with the referring physician. Additionally, specific post-injection care instructions and a contact number to our office were provided if concerns arise regarding possible complications associated with the procedure are suspected.
== END 2021-06-10 09:25 | disposition home or self-care (01) ==
LOC: RAD 07:27
PROVIDERS: PCP Physician Assistant; Referring Provider Physical Medicine & Rehabilitation; Visit Provider Physical Medicine & Rehabilitation
DX: M47.816 Spondylosis without myelopathy or radiculopathy, lumbar region (principal); M47.817 Spondylosis without myelopathy or radiculopathy, lumbosacral region
CPT/HCPCS: 64635; 64636; 99152; 99153; J2250

== ENCOUNTER → 2021-09-10 12:26 | Outpatient (CLI) | payer MEDICARE, OTHER, SELFPAY ==
--- NOTE | 2021-09-10 12:29 | DI.RAD.S_ITS ---
PROCEDURE: XR SHOULDER RT MIN 2V INDICATIONS: Right shoulder impingement TECHNIQUE: 3 views of the shoulder were acquired. COMPARISON: None. FINDINGS: Bones: No fractures or dislocations. No suspicious bony lesions. Visualized ribs appear intact. Mild glenohumeral joint osteoarthritis. Soft tissues: No suspicious soft tissue calcifications. IMPRESSION: Mild glenohumeral joint osteoarthritis. Dictated by: Melba Martin MD, PhD on 09/10/2021 at 16:27 Approved by: Melba Martin MD, PhD on 09/10/2021 at 16:28
== END ==
PROVIDERS: PCP Physician Assistant; Referring Provider Physical Medicine & Rehabilitation; Visit Provider Physical Medicine & Rehabilitation
DX: M19.011 Primary osteoarthritis, right shoulder (principal); M75.41 Impingement syndrome of right shoulder; G60.8 Other hereditary and idiopathic neuropathies; M47.816 Spondylosis without myelopathy or radiculopathy, lumbar region; M51.26 Other intervertebral disc displacement, lumbar region; M43.16 Spondylolisthesis, lumbar region
CPT/HCPCS: 73030; 99214

== ENCOUNTER 2022-01-13 12:17 | Outpatient (CLI) | payer MEDICARE, OTHER, SELFPAY ==
[2022-01-13] VITALS (9 sets, daily range): BP systolic 119–173; BP diastolic 65–81; PULSE 58–67; RESP 12–18; TEMP 36.4; O2SAT 98–100
--- NOTE | 2022-01-13 12:19 | DI.RAD.S_ITS ---
PROCEDURE: PAIN L/S TRANSFORAMINAL INJECT INDICATIONS: SPONDYLOSIS COMPARISON: None. FINDINGS: Fluoroscopic spot filming was performed to verify placement of spinal needles at the left L3-L4 neural foramen level(s), as labeled on the films. Appropriate location(s) of the needle tip(s) was confirmed by injection of iodinated contrast. IMPRESSION: Access needle at the left L3-L4 neural foramen for transforaminal epidural steroid injection. Dictated by: Melba Martin MD, PhD on 01/13/2022 at 14:38 Approved by: Melba Martin MD, PhD on 01/13/2022 at 14:39
[2022-01-13] MEDS: MIDAZOLAM 2 MG/2 ML VIAL IV (13:24)
[2022-01-13] MEDS: BUPIVACAINE 0.25% (PF) VIAL 2 ML INJ (13:28)
[2022-01-13] MEDS: IOPAMIDOL 15 ML VIAL 3 ML INJ (13:28)
[2022-01-13] MEDS: DEXAMETHASONE 10 MG/ML VIAL 20 MG INJ (13:29)
[2022-01-13] MEDS: BETAMETHASONE 30 MG/5 ML MDV 6 MG INJ (13:29)
--- NOTE | 2022-01-13 13:42 | PM.PROC.IR.1 ---
Date/Time/Diagnoses Date of procedure: 01/13/22 Time of procedure: 13:42 Pre-procedure diagnosis: 1. FORAMINAL STENOSIS WITH LE SYMPTOMS Post-procedure diagnosis: same Procedure Notes Procedure: 1. FLUOROSCOPICALLY GUIDED CONTRAST CONTROLLED TRANSFORAMINAL EPIDURAL STEROID INJECTION - LEFT L3/4 TFESI Indications: Leona is referred by [facility] for treatment of Foraminal Stenosis with left LE Symptoms Physician: Pramod Jimenez Total Fluoroscopy time (seconds): 12 Total sedation minutes: 13 Complications: none Procedure in detail & Post-procedure care: FINDINGS Foraminal Nerve Root Compression secondary to disc disease and facet hypertrophy DESCRIPTION OF PROCEDURE Following review of allergy and review of potential side effects and complications, including, but not necessarily limited to, infection, allergic reaction, local tissue breakdown, stroke, temporary or permanent nerve injury, paralysis, and possible , the patient indicated that the patient understood and agreed to proceed. An informed consent document was signed by the patient, witnessed by a nurse, and placed in the patient's chart. Additionally, other treatment options including medications, modalities, and physical therapy were reviewed with the patient. After review of previous anaesthesic history and IV conscious sedation the patient was deemed safe to proceed with today?s procedure with IV conscious sedation as ASA class II designation. Safety time-out was performed to confirm patient ID, procedure to be performed and site of procedure. IV sedation was accomplished with a combination of 2mg of Versed was administered by the RN after DO order, titrated to patient comfort during the course of the procedure while the patient remained responsive to all verbal commands In the prone position following sterile prep and drape of the lumbar region, the left L3/4 posterior neuroforamen was identified fluoroscopically. The skin was anesthetized via a 25-gauge 1.5-inch needle with 1% lidocaine solution. At this point, a 25-gauge 3.5-inch spinal needle was atraumatically introduced and advanced under fluoroscopic guidance through the posterior left L3/4 neuroforamen to approximately the anterior aspect of the canal. Depth was confirmed on lateral view. Following negative aspiration, injection of approximately 1.5 cc of Isovue 200 under live fluoroscopy in the AP view confirmed excellent flow along the nerve root, into the epidural space without vascular or intrathecal uptake observed Radiological data, including multiple fluoroscopic views of the lumbosacral spine, reveal a spinal needle at the left L3/4 posterior neuroforamen. Subsequent views show flow of contrast material flowing superiorly and inferiorly along the nerve root confirming epidural flow. Subsequently, a test dose of 1.5cc of 1% lidocaine solution was administered and patient was observed for two minutes for signs or symptoms of complications, including abdominal pain, shortness of breath, bilateral upper or lower extremity weakness, nausea and vomiting, prior to steroid injection. At this point, a total of 3cc or 20mg of dexamethasone and 6mg betamethasone was injected without incident. The patient tolerated the procedure well without signs or symptoms of complications prior to transfer to the recovery area continued monitoring without incident. The patient was then transferred to the recovery area where they were observed for an appropriate time after the injection. The patient reported a VAS score of 7 prior to the procedure and a post-procedure VAS of 0. POST OP INSTRUCTIONS The patient was provided a Pain Log to continue to record their response to the target-specific procedure prior to follow-up visit with their referring physician. Additionally, specific post-injection care instructions and a contact number to our office were provided if concerns arise regarding possible complications associated with the procedure are suspected.
== END 2022-01-13 14:02 | disposition home or self-care (01) ==
PROVIDERS: PCP Physician Assistant; Referring Provider Physical Medicine & Rehabilitation; Visit Provider Physical Medicine & Rehabilitation
DX: M48.061 Spinal stenosis, lumbar region without neurogenic claudication (principal); M51.16 Intervertebral disc disorders with radiculopathy, lumbar region
CPT/HCPCS: 64483; 99152; J0702; J1100; J2250; J3490

== ENCOUNTER → 2022-02-12 12:46 | Outpatient (CLI) | payer MEDICARE, OTHER, SELFPAY ==
--- NOTE | 2022-02-12 12:49 | DI.MG.S_ITS ---
BILATERAL DIGITAL SCREENING MAMMOGRAM 3D/2D WITH CAD: 02/12/2022 CLINICAL: Routine screening. Comparison is made to exams dated: 02/01/2021 mammogram, 01/24/2020 mammogram, and 12/09/2018 mammogram - [facility]. There are scattered areas of fibroglandular density in both breasts (category b / 25%-50% glandular tissue). Current study was also evaluated with a Computer Aided Detection (CAD) system. No significant masses, calcifications, or other findings are seen in either breast. There has been no significant interval change. IMPRESSION: NEGATIVE There is no mammographic evidence of malignancy. A 1 year screening mammogram is recommended. Based on the Tyrer Cuzick model (a risk assessment model) the patient's lifetime risk is 2.5% and her 10 year risk is 0.0%. According to the ACR, ACS, and NCCN guidelines, an annual breast MRI exam along with mammogram is recommended if the patient's lifetime risk is 20% or greater. This exam was interpreted at Station ID: [id number]. NOTE: For mammograms, a report in lay terms will be sent to the patient. Approximately 15% of breast malignancies will not be visualized mammographically. In the management of a palpable breast mass, a negative mammogram must not discourage biopsy of a clinically suspicious lesion. Electronically Signed By: Ovidio [email or web address]:02/12/2022 16:36:36 letter sent: Normal Exam ACR BI-RADS Category 1: Negative 3341F
== END ==
PROVIDERS: Visit Provider Family Medicine
DX: Z12.31 Encounter for screening mammogram for malignant neoplasm of breast (principal)
CPT/HCPCS: 77063; 77067

== ENCOUNTER → 2022-07-22 12:31 | Outpatient (CLI) | payer MEDICARE, OTHER, SELFPAY ==
--- NOTE | 2022-07-22 12:33 | DI.RAD.S_ITS ---
PROCEDURE: XR WRIST LT MIN 3V INDICATIONS: wrist pain s/p fall TECHNIQUE: 4 views of the wrist were acquired. COMPARISON: None. FINDINGS: Bones: No fractures or dislocations. No suspicious bony lesions. First CMC joint space narrowing with associated osteophytosis. Scaphoid view: Unremarkable. Soft tissues: No suspicious soft tissue calcifications. IMPRESSION: No displaced fracture. First CMC osteoarthritis. Dictated by: Floyd Hernandez M.D. on 07/22/2022 at 12:14 Approved by: Floyd Hernandez M.D. on 07/22/2022 at 12:15
--- NOTE | 2022-07-22 12:33 | DI.RAD.S_ITS ---
PROCEDURE: XR WRIST RT MIN 3V INDICATIONS: wrist pain s/p fall TECHNIQUE: 4 views of the wrist were acquired. COMPARISON: None. FINDINGS: Bones: No fractures or dislocations. No suspicious bony lesions. First CMC joint space narrowing with associated osteophytosis. Scaphoid view: Unremarkable. Soft tissues: No suspicious soft tissue calcifications. IMPRESSION: No displaced fracture. 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 Dictated by: Floyd Hernandez M.D. on 07/22/2022 at 12:15 Approved by: Floyd Hernandez M.D. on 07/22/2022 at 12:16
== END ==
PROVIDERS: PCP Internal Medicine; Referring Provider Physical Medicine & Rehabilitation; Visit Provider Physical Medicine & Rehabilitation
DX: M19.90 Unspecified osteoarthritis, unspecified site (principal); M19.039 Primary osteoarthritis, unspecified wrist; R26.81 Unsteadiness on feet; M75.41 Impingement syndrome of right shoulder; G60.8 Other hereditary and idiopathic neuropathies; M47.816 Spondylosis without myelopathy or radiculopathy, lumbar region; M51.26 Other intervertebral disc displacement, lumbar region; S32.040A Wedge compression fracture of fourth lumbar vertebra, initial encounter for closed fracture; M43.16 Spondylolisthesis, lumbar region; M19.131 Post-traumatic osteoarthritis, right wrist; M19.132 Post-traumatic osteoarthritis, left wrist; M17.0 Bilateral primary osteoarthritis of knee
CPT/HCPCS: 73110; 99215

== ENCOUNTER → 2022-11-06 10:08 | Outpatient (CLI) | payer MEDICARE, OTHER, SELFPAY ==
--- NOTE | 2022-11-06 10:09 | DI.RAD.S_ITS ---
PROCEDURE: XR KNEE LT 3V INDICATIONS: LEFT KNEE PAIN TECHNIQUE: 3 views of the knee were acquired. COMPARISON: Same date contralateral right knee radiographs. FINDINGS: Bones: No fractures or dislocations. Mild to moderate joint space narrowing at the medial compartment. Mild sclerosis at the medial tibial plateau. Small osteophytes most pronounced at the medial and patellofemoral compartments. No suspicious bony lesions. Soft tissues: Trace joint effusion. No suspicious soft tissue calcifications. IMPRESSION: [id number] left knee DJD most pronounced in the medial compartment. Dictated by: Dylon Gupta M.D. on 11/06/2022 at 11:19 Approved by: Dylon Gupta M.D. on 11/06/2022 at 11:20
--- NOTE | 2022-11-06 10:09 | DI.RAD.S_ITS ---
PROCEDURE: XR KNEE RT 3V INDICATIONS: RIGHT KNEE PAIN TECHNIQUE: 3 views of the knee were acquired. COMPARISON: None. FINDINGS: Bones: No fractures or dislocations. Mild to moderate joint space narrowing at the medial compartment. Small osteophytes most pronounced at the medial and patellofemoral compartments. No suspicious bony lesions. Soft tissues: Trace joint effusion. No suspicious soft tissue calcifications. IMPRESSION: [id number] right knee DJD most pronounced at the medial and patellofemoral compartments. Dictated by: Dylon Gupta M.D. on 11/06/2022 at 11:18 Approved by: Dylon Gupta M.D. on 11/06/2022 at 11:19
== END ==
PROVIDERS: PCP Internal Medicine; Referring Provider Physical Medicine & Rehabilitation; Visit Provider Physical Medicine & Rehabilitation
DX: M17.0 Bilateral primary osteoarthritis of knee (principal); M25.561 Pain in right knee; M25.562 Pain in left knee
CPT/HCPCS: 73562

== ENCOUNTER → 2023-02-16 11:45 | Outpatient (CLI) | payer MEDICARE, OTHER, SELFPAY ==
--- NOTE | 2023-02-16 11:47 | DI.MG.S_ITS ---
BILATERAL DIGITAL SCREENING MAMMOGRAM 3D/2D WITH CAD: 02/16/2023 CLINICAL: Routine screening. Comparison is made to exams dated: 02/12/2022 mammogram, 02/01/2021 mammogram, and 01/24/2020 mammogram - [facility]. There are scattered areas of fibroglandular density in both breasts (category b / 25%-50% glandular tissue). Current study was also evaluated with a Computer Aided Detection (CAD) system. There is a biopsy clip in the right breast. No significant masses, calcifications, or other findings are seen in either breast. There has been no significant interval change. IMPRESSION: NEGATIVE There is no mammographic evidence of malignancy. A 1 year screening mammogram is recommended. Based on the Tyrer Cuzick model (a risk assessment model) the patient's lifetime risk is 2.2% and her 10 year risk is 0.0%. According to the ACR, ACS, and NCCN guidelines, an annual breast MRI exam along with mammogram is recommended if the patient's lifetime risk is 20% or greater. This exam was interpreted at Station ID: [id number]. NOTE: For mammograms, a report in lay terms will be sent to the patient. Approximately 15% of breast malignancies will not be visualized mammographically. In the management of a palpable breast mass, a negative mammogram must not discourage biopsy of a clinically suspicious lesion. Electronically Signed By: Stella núñez/christian:02/16/2023 14:46:28 letter sent: Normal Exam ACR BI-RADS Category 1: Negative 3341F
== END ==
PROVIDERS: PCP Internal Medicine; Referring Provider Internal Medicine; Visit Provider Internal Medicine
DX: Z12.31 Encounter for screening mammogram for malignant neoplasm of breast (principal)
CPT/HCPCS: 77063; 77067

== ENCOUNTER 2024-04-20 09:42 | Outpatient (CLI) | payer MEDICARE, SELFPAY ==
[2024-04-20] VITALS (8 sets, daily range): BP systolic 113–164; BP diastolic 57–82; PULSE 55–64; RESP 15–18; TEMP 36.2; O2SAT 97–100
--- NOTE | 2024-04-20 10:37 | DI.RAD.S_ITS ---
PROCEDURE: PAIN L INTERLAMINAR/CAUDAL INJ INDICATIONS: LEFT L4-5 TL COMPARISON: [facility], , PAIN L INTERLAMINAR/CAUDAL INJ, 06/20/2020, 13:59. FINDINGS/IMPRESSION: Fluoroscopic spot filming was performed to verify placement of spinal needle at the left L4-5 level, as labeled on the films. Appropriate location of the needle tip was confirmed by injection of iodinated contrast. Approved by: Ovidio Bowen M.D. on 04/20/2024 at 19:20
[2024-04-20] MEDS: MIDAZOLAM 2 MG/2 ML VIAL IV (11:01)
[2024-04-20] MEDS: BUPIVACAINE 0.25% (PF) VIAL 2 ML INJ (11:04)
[2024-04-20] MEDS: DEXAMETHASONE 10 MG/ML VIAL INJ (11:04)
[2024-04-20] MEDS: BETAMETHASONE 30 MG/5 ML MDV 12 MG INJ (11:05)
[2024-04-20] MEDS: iopamidoL 15 ML VIAL 3 ML INJ (11:05)
--- NOTE | 2024-04-20 11:21 | P.PCN_ITS ---
Date/Time/Diagnoses Date of procedure: 04/20/24 Time of procedure: 11:21 Pre-procedure diagnosis: 1. HNP WITH RADICULAR FEATURES, 2. MULTILEVEL CENTRAL STENOSIS, Post-procedure diagnosis: same Procedure Notes Procedure: 1. FLUOROSCOPICALLY GUIDED CONTRAST CONTROLLED INTERLAMINAR EPIDURAL STEROID INJECTION -L4/5 Indications: Leona is referred by Dr. Dawson for treatment of Bilateral Foraminal Stenosis R>L LE symptoms. Physician: Pramod Jimenez Total Fluoroscopy time (seconds): 15 Total sedation minutes: 16 Complications: none Procedure in detail & Post-procedure care: FINDINGS Multilevel Central Spinal Stenosis with Nerve Root Compression DESCRIPTION OF PROCEDURE Fluoroscopically guided, contrast-controlled L4/5 translaminar epidural steroid injection. Following review of allergy and review of potential side effects and complications, including, but not necessarily limited to, infection, allergic reaction, local tissue breakdown, temporary as well as permanent nerve injury, paralysis, stroke and possible , the patient indicated that the patient understood and agreed to proceed. An informed consent document was signed by the patient, witnessed by a nurse, and placed in the patient's chart. Additionally, other treatment options including modalities, medications, and physical therapy were reviewed with the patient. After review of previous anaesthesic history and IV conscious sedation the patient was deemed safe to proceed with today?s procedure with IV conscious sedation as ASA class II designation. Safety time-out was performed to confirm p atient ID, procedure to be performed and site of procedure. IV sedation was accomplished with a combination of 2mg of Versed was administered by the RN after DO order, titrated to patient comfort during the course of the procedure while the patient remained responsive to all verbal commands In the prone position, following sterile prep and drape of the lumbar region, the L4/5 translaminar space was identified fluoroscopically. The skin was anesthetized via a 25-gauge, 1.5inch needle with 1% lidocaine solution. At this point, a 22-gauge short bevel spinal needle was atraumatically introduced and advanced under fluoroscopic guidance into the region of the L4/5 translaminar space. Depth was confirmed on lateral view. Radiological data, including multiple fluoroscopic views of the lumbar spine, reveal a spinal needle at the L4/5 translaminar space. Lateral views then show placement of the needle in the epidural space. Subsequent views show contrast material flowing superiorly and inferiorly in the epidural space. No vascular or intrathecal uptake is observed. At this point, using loss of resistance technique with saline and air, the epidural space was entered. This was confirmed following negative aspiration with injection of approximately 1.5cc of Isovue 200, showing excellent epidural flow without vascular or intrathecal uptake. At this point, 1cc of 1% lidocaine solution combined with 2cc or 10mg of dexamethasone and 6mg betamethasone was injected without incident. The patient tolerated the procedure well without signs or symptoms of complications prior to transfer to the recovery area continued monitoring without incident. The patient was then transferred to the recovery area where they were observed for an appropriate period of time after the injection. The patient reported a VAS score of 6 prior to the procedure and a post- procedure VAS of 0. POST OP INSTRUCTIONS The patient was provided a Pain Log to continue to record their response to the target-specific procedure prior to follow-up visit with their referring physician. Additionally, specific post-injection care instructions and a contact number to our office were provided if concerns arise regarding possible complications associated with the procedure are suspected.
== END 2024-04-20 11:07 | disposition home or self-care (01) ==
PROVIDERS: PCP Internal Medicine; Referring Provider Physical Medicine & Rehabilitation; Visit Provider Physical Medicine & Rehabilitation
DX: M51.16 Intervertebral disc disorders with radiculopathy, lumbar region (principal); M48.061 Spinal stenosis, lumbar region without neurogenic claudication
CPT/HCPCS: 62323; 99152; J0702; J1100; J2250; J3490

== ENCOUNTER → 2024-07-13 11:09 | Outpatient (CLI) | payer MEDICARE, SELFPAY ==
[2024-07-13 12:19] LABS: Add Manual Diff / Slide Review NO; Basophils Absolute Auto 0 /uL (0-100); Basophils Percent Auto 0.5 % (0-2); Eosinophils Absolute Auto 100 /uL (0-450); Eosinophils Percent Auto 0.7 % (2-4); Hematocrit 36.4 % (36-46); Hemoglobin 12.4 g/dL (12.0-16.0); Lymphocytes Absolute Auto 1900 /uL (1100-4500); Lymphocytes Percent Auto 24.9 % (25-40); Mean Corpuscular Hemoglobin 31.3 PG (26-34); Mean Corpuscular Volume 91.9 fL (80-100); Monocytes Absolute Auto 600 /uL (0-900); Monocytes Percent Auto 7.6 % (3-14); Neutrophils Absolute Auto 5000 /uL (1500-7000); Neutrophils Percent Auto 66.3 % (50-75); Platelet Count 243 X10^3/uL (150-400); Red Blood Cell Count 3.96 X10^6/uL (4.0-5.2); Red Cell Distribution Width 13.7 % (11.6-14.8); White Blood Cell Count 7.5 X10^3/uL (4.5-11.0)
[2024-07-13 12:25] LABS: Hemoglobin A1C% w Est Avg Glu 5.7 % (4.0-6.0)
== END ==
PROVIDERS: PCP Internal Medicine; Referring Provider Internal Medicine; Visit Provider Internal Medicine
DX: D64.9 Anemia, unspecified (principal); E11.42 Type 2 diabetes mellitus with diabetic polyneuropathy
CPT/HCPCS: 36415; 83036; 85025

== ENCOUNTER → 2025-01-18 12:34 | Outpatient (CLI) | payer MEDICARE, SELFPAY ==
[2025-01-18 13:17] LABS: Add Manual Diff / Slide Review NO; Hematocrit 37.1 % (36-46); Hemoglobin 12.3 g/dL (12.0-16.0); Lymphocytes Absolute Auto 2000 /uL (1100-4500); Mean Corpuscular HGB Conc 33.2 % (30-36); Mean Corpuscular Hemoglobin 30.1 PG (26-34); Mean Corpuscular Volume 90.8 fL (80-100); Platelet Count 285 X10^3/uL (150-400)
[2025-01-18 13:23] LABS: Hemoglobin A1C% w Est Avg Glu 6.0 % (4.0-6.0)
[2025-01-18 14:05] LABS: Blood Urea Nitrogen 18 mg/dL (7-17); Calcium 10.0 mg/dL (8.4-10.2); Carbon Dioxide 24 mmol/L (22-32); Chloride 100 mmol/L (98-107); Cholesterol 162 mg/dL (140-199); Estimated Glomerular Filt Rate > 60 mL/min (>60); Glucose 89 mg/dL (70-99); HDL Cholesterol 68 mg/dL (40-60); HEMOLYSIS < 15 (0-50); Magnesium 1.7 mg/dL (1.6-2.3); Potassium 4.9 mmol/L (3.4-5.1); Sodium 134 mmol/L (137-145); Triglycerides 202 mg/dL (35-150)
[2025-01-18 15:22] LABS: Protein (Total) Urine Random < 5 mg/dL (0-12); Protein Creatinine Ratio Urine 0.10 GRAM/24H
[2025-01-18 17:40] LABS: Vitamin B12 924 pg/mL (239-931)
== END ==
PROVIDERS: PCP Internal Medicine; Referring Provider Internal Medicine; Visit Provider Internal Medicine
DX: Z51.81 Encounter for therapeutic drug level monitoring (principal); D64.9 Anemia, unspecified; E11.42 Type 2 diabetes mellitus with diabetic polyneuropathy; E78.5 Hyperlipidemia, unspecified; K21.9 Gastro-esophageal reflux disease without esophagitis
CPT/HCPCS: 36415; 80048; 80061; 82570; 82607; 83036; 83735; 84156; 85025